=== PATIENT | male | born 1945 | race Caucasian/White ===

== ENCOUNTER 2021-07-16 07:29 | Outpatient (CLI) | payer MEDICAID ==
[2021-07-16 12:13] LABS: BASOPHILS % (AUTO) 0.5 %; EOSINOPHILS # (AUTO) 0.3 10^3/uL (0.0-0.7); EOSINOPHILS % (AUTO) 5.6 %; HCT - HEMATOCRIT 54.3 % (42.0-52.0); HGB - HEMOGLOBIN 17.2 g/dL (14.0-18.0); LYMPHOCYTES # (AUTO) 1.2 10^3/uL (1.5-3.5); LYMPHOCYTES % (AUTO) 20.1 %; MEAN CORPUSCULAR HEMOGLOBIN 29.7 pg (27.0-31.0); MEAN CORPUSCULAR HGB CONC 31.7 g/dL (32.0-36.0); MEAN CORPUSCULAR VOLUME 93.8 fL (80.0-94.0); MEAN PLATELET VOLUME 10.8 fL; MONOCYTES # (AUTO) 0.6 10^3/uL (0.0-1.0); MONOCYTES % (AUTO) 9.7 %; NEUTROPHILS # (AUTO) 3.9 10^3/uL (1.5-6.6); NEUTROPHILS % (AUTO) 63.9 %; PLT - PLATELET COUNT 166 10^3/uL (130-450); RED BLOOD COUNT 5.79 10^6/uL (4.70-6.10); RED CELL DISTRIBUTION WIDTH 12.4 % (12.0-15.0); WHITE BLOOD COUNT 6.1 x10^3/uL (4.8-10.8)
[2021-07-16 12:52] LABS: ALBUMIN 4.6 g/dL (3.2-5.5); ALBUMIN/GLOBULIN RATIO 1.3 (1.0-2.2); ALKALINE PHOSPHATASE 75 IU/L (42-121); ALT ALANINE AMINOTRANSFERASE 24 IU/L (10-60); AST ASPARTATE AMINOTRANSFERASE 19 IU/L (10-42); BILIRUBIN,TOTAL 0.8 mg/dL (0.2-1.0); BUN - BLOOD UREA NITROGEN 20 mg/dL (6-20); CALCIUM 9.8 mg/dL (8.5-10.3); CARBON DIOXIDE - CO2 35 mmol/L (21-32); CHLORIDE 96 mmol/L (101-111); CHOL/HDL RATIO 4.2; CHOLESTEROL 195 mg/dL; CREATININE 0.7 mg/dL (0.6-1.2); GFR - MDRD 110 (>89); GLUCOSE 106 mg/dL (70-100); HDL CHOLESTEROL 46 mg/dL; LDL CHOLESTEROL,CALCULATED 114 mg/dL; LDL/HDL RATIO 2.5 (<3.6); POTASSIUM 4.6 mmol/L (3.5-5.0); SODIUM 139 mmol/L (135-145); TOTAL PROTEIN 8.2 g/dL (6.7-8.2); TRIGLYCERIDES 173 mg/dL; VLDL CHOLESTEROL 35 mg/dL
== END 2021-07-16 07:30 | disposition home or self-care (01) ==
LOC: EDSEX → LAB.N 07:29
PROVIDERS: ATTEND Internal Medicine
DX: I10 Essential (primary) hypertension (principal); Z13.6 Encounter for screening for cardiovascular disorders; Z79.899 Other long term (current) drug therapy; J44.9 Chronic obstructive pulmonary disease, unspecified; M19.90 Unspecified osteoarthritis, unspecified site; F31.9 Bipolar disorder, unspecified; F41.9 Anxiety disorder, unspecified; N40.0 Benign prostatic hyperplasia without lower urinary tract symptoms
CPT/HCPCS: 36415; 80053; 80061; 83721; 84153; 84443; 85025

== ENCOUNTER 2021-07-17 09:00 | Outpatient (CLI) | payer MEDICAID ==
[2021-07-17 14:03] LABS: FECAL OCCULT BLOOD (FIT) NEGATIVE (NEGATIVE)
== END 2021-07-17 23:59 | disposition home or self-care (01) ==
LOC: EDSEX → LAB 09:00
PROVIDERS: ATTEND Internal Medicine
DX: Z12.11 Encounter for screening for malignant neoplasm of colon (principal); Z12.12 Encounter for screening for malignant neoplasm of rectum
CPT/HCPCS: 82274

== ENCOUNTER 2021-08-30 15:51 | Outpatient (CLI) | payer MEDICARE, MEDICAID | END 2021-08-30 15:52 | disposition critical access hospital (66) | LOC: EMS 15:51 | DX: R06.00 Dyspnea, unspecified (principal) | CPT/HCPCS: A0425; A0427 ==

== ENCOUNTER 2021-08-30 16:07 | Inpatient (IN) | payer MEDICARE, MEDICAID ==
[2021-08-30] MEDS ORDERED: ALBUTEROL NEB 2.5 MG/3 ML INH STA (16:13)
[2021-08-30] MEDS ORDERED: methylPREDNISolone SUCCINATE 125 MG/2 ML VIAL IVP STA (16:14)
--- NOTE | 2021-08-30 16:17 | ED Physician Documentation ---
PD HPI DYSPNEA - Stated complaint Stated Complaint: SOA - History obtained from History obtained from: Patient, EMS - Additional information Additional information: 76-year-old gentleman presents from [facility] assisted living. He has a history of COPD for which he wears oxygen, schizophrenia and TBI. He does not know how much oxygen he usually wears at home but he says he does wear it all the time. He has been more short of breath over the last couple of days with increased wheezing but only a mild cough. He denies chest pain or pedal edema. EMS was summoned and they found him at the nursing station not wearing oxygen, on room air his sat was in the 70s. On the way here he got a DuoNeb and is feeling much better. Review of Systems Ten Systems: 10 systems reviewed and negative Constitutional: reports: Reviewed and negative Ears: reports: Reviewed and negative Nose: reports: Reviewed and negative PD PAST MEDICAL HISTORY - Allergies Allergies/Adverse Reactions: Allergies Allergy/AdvReac Type Severity Reaction Status Date / Time No Known Drug Allergies Allergy Verified 08/30/21 16:30 PD ED PE NORMAL - Vitals Vital signs reviewed: Yes - General General: Other (Knows it is Mindy but not which year.) - HEENT HEENT: PERRL, EOMI, Pharynx benign - Neck Neck: Supple, no meningeal sign, No bony TTP - Cardiac Cardiac: RRR, No murmur - Respiratory Respiratory: No respiratory distress, Other (Diminished throughout with mild expiratory wheezes, nonlabored) - Abdomen Abdomen: Soft, Non tender - Back Back: No CVA TTP, No spinal TTP - Derm Derm: Normal color, Warm and dry - Extremities Extremities: No edema, No calf tenderness / cord - Psych Psych: Normal mood, Normal affect Results - Vitals Vitals: Vital Signs - 24 hr 08/30/21 08/30/21 08/30/21 16:17 16:30 17:00 Temperature 36.8 C 36.8 C Heart Rate 105 H 105 H 98 Respiratory 20 20 28 H Rate Blood Pressure 123/72 123/72 122/69 O2 Saturation 87 L 93 Oxygen O2 Source Nasal cannula Oxygen Flow Rate 4 - Labs Labs: Laboratory Tests 08/30/21 08/30/21 08/30/21 16:15 16:30 16:30 WBC 8.4 RBC 5.12 Hgb 15.1 Hct 46.5 MCV 90.8 MCH 29.5 MCHC 32.5 RDW 13.1 Plt Count 134 MPV 10.4 Neut # (Auto) Not Reportable Lymph # (Auto) Not Reportable [place] # (Auto) Not Reportable Eos # (Auto) Not Reportable Baso # (Auto) Not Reportable Absolute Nucleated RBC Not Reportable Total Counted 100 Band Neuts % (Manual) 5 Abnorm Lymph % (Manual) 0 Nucleated RBC % Not Reportable Neutrophils # (Manual) 6.7 H Lymphocytes # (Manual) 0.6 L Monocytes # (Manual) 1.1 H Eosinophils # (Manual) 0.0 Basophils # (Manual) 0.0 Nucleated RBCs 1 Differential Comment MANUAL DIFFERENTIAL WBC Morphology NORMAL APPEARANCE Platelet Estimate NORMAL (130-450,000) Platelet Morphology NORMAL APPEARANCE RBC Morph Micro Appear 1+ POLYCHROMASIA VBG pH VBG pCO2 VBG pO2 VBG HCO3 VBG Total CO2 VBG O2 Saturation VBG Base Excess Sodium 132 L Potassium 4.3 Chloride 90 L Carbon Dioxide 32 Anion Gap 10.0 BUN 43 H Creatinine 1.0 Estimated GFR (MDRD) 73 L Glucose 220 H Calcium 8.1 L Phosphorus 3.3 Nasal Adenovirus (PCR) NOT DETECTED Nasal B. parapertussis DNA (PCR) NOT DETECTED Nasal Coronavir 229E PCR NOT DETECTED Nasal Coronavir HKU1 PCR NOT DETECTED Nasal Coronavir NL63 PCR NOT DETECTED Nasal Coronavir OC43 PCR NOT DETECTED Nasal Enterovir/Rhinovir PCR NOT DETECTED Nasal Influenza B PCR NOT DETECTED Nasal Influenza A PCR NOT DETECTED Nasal Parainfluen 1 PCR NOT DETECTED Nasal Parainfluen 2 PCR DETECTED A Nasal Parainfluen 3 PCR NOT DETECTED Nasal Parainfluen 4 PCR NOT DETECTED Nasal RSV (PCR) NOT DETECTED Nasal B.pertussis DNA PCR NOT DETECTED Nasal C.pneumoniae (PCR) NOT DETECTED [place] Human Metapneumo PCR NOT DETECTED Nasal M.pneumoniae (PCR) NOT DETECTED Nasal SARS-CoV-2 (PCR) NOT DETECTED 08/30/21 16:30 WBC RBC Hgb Hct MCV MCH MCHC RDW Plt Count MPV Neut # (Auto) Lymph # (Auto) [place] # (Auto) Eos # (Auto) Baso # (Auto) Absolute Nucleated RBC Total Counted Band Neuts % (Manual) Abnorm Lymph % (Manual) Nucleated RBC % Neutrophils # (Manual) Lymphocytes # (Manual) Monocytes # (Manual) Eosinophils # (Manual) Basophils # (Manual) Nucleated RBCs Differential Comment WBC Morphology Platelet Estimate Platelet Morphology RBC Morph Micro Appear VBG pH 7.256 L VBG pCO2 75.1 H VBG pO2 31.7 VBG HCO3 32.6 H VBG Total CO2 34.9 H VBG O2 Saturation 58.2 L VBG Base Excess 2.6 H Sodium Potassium Chloride Carbon Dioxide Anion Gap BUN Creatinine Estimated GFR (MDRD) Glucose Calcium Phosphorus Nasal Adenovirus (PCR) Nasal B. parapertussis DNA (PCR) Nasal Coronavir 229E PCR Nasal Coronavir HKU1 PCR Nasal Coronavir NL63 PCR Nasal Coronavir OC43 PCR Nasal Enterovir/Rhinovir PCR Nasal Influenza B PCR Nasal Influenza A PCR Nasal Parainfluen 1 PCR Nasal Parainfluen 2 PCR Nasal Parainfluen 3 PCR Nasal Parainfluen 4 PCR Nasal RSV (PCR) Nasal B.pertussis DNA PCR Nasal C.pneumoniae (PCR) Osbaldo Human Metapneumo PCR Nasal M.pneumoniae (PCR) Nasal SARS-CoV-2 (PCR) - Rads (name of study) 1v cxr Radiology: EMP read contemporaneously (bibasilar atalectasis) PD MEDICAL DECISION MAKING - ED course ED course: 76-year-old gentleman presents by ambulance for apparent COPD exacerbation with wheezing and hypoxemia. He states that he wears oxygen at home, but he does seem confused and this is not on the paperwork that accompanies him. I called and spoke with the nurse at [facility]. She notes that he is more confused than normal and despite his history above, he does not wear oxygen at Baseline. He received a DuoNeb prior to arrival and received a couple more nebs here. Still has significant oxygen requirement although did not appear to labored. Blood gas shows acidosis and CO2 retention. Spoke with Dr. Bonner for admission at 5:20 PM. Did receive IV steroids and Dr. Bonner recommended we add antibiotics. - Critical Care Time(min): 35 Time Includes: Direct patient care, Review records, Reassess patient, Document care, Coordinate care, Medical consult Data interpretation: Labs, Pulse ox Departure - Departure Disposition: 66 [facility] DC/Xfer Clinical Impression: Severe chronic obstructive pulmonary disease Respiratory failure Qualifiers: Chronicity: acute Respiratory failure complication: hypoxia and hypercapnia Qualified Code(s): J96.01 - Acute respiratory failure with hypoxia Condition: Serious
--- NOTE | 2021-08-30 16:39 | XRAY Report ---
PROCEDURE: Chest 1 View X-Ray INDICATIONS: dyspnea TECHNIQUE: One view of the chest was acquired. COMPARISON: None FINDINGS: Surgical changes and devices: None. Lungs and pleura: Bibasilar atelectasis. No pleural effusions or pneumothorax. Lungs are clear. Mediastinum: Mediastinal contours appear normal. Heart size is normal. Bones and chest wall: No suspicious bony lesions. Overlying soft tissues appear unremarkable. IMPRESSION: Bibasilar atelectasis. No acute cardiopulmonary abnormality. Reviewed by: Candido Nance on 08/30/2021 3:38 PM [facility] Approved by: Candido Nance on 08/30/2021 3:38 PM [facility] Station ID: [id number]
[2021-08-30 16:41] LABS: BASOPHILS % (AUTO) 0.2 %; HCT - HEMATOCRIT 46.5 % (42.0-52.0); HGB - HEMOGLOBIN 15.1 g/dL (14.0-18.0); LYMPHOCYTES % (AUTO) 8.7 %; MEAN CORPUSCULAR HEMOGLOBIN 29.5 pg (27.0-31.0); MEAN CORPUSCULAR HGB CONC 32.5 g/dL (32.0-36.0); MEAN CORPUSCULAR VOLUME 90.8 fL (80.0-94.0); MEAN PLATELET VOLUME 10.4 fL (7.4-11.4); MONOCYTES % (AUTO) 7.5 %; NEUTROPHILS % (AUTO) 83.1 %; PLT - PLATELET COUNT 134 10^3/uL (130-450); RED BLOOD COUNT 5.12 10^6/uL (4.70-6.10); RED CELL DISTRIBUTION WIDTH 13.1 % (12.0-15.0); WHITE BLOOD COUNT 8.4 x10^3/uL (4.8-10.8)
[2021-08-30 16:43] LABS: ABNORMAL LYMPHS % (MANUAL) 0 %; VBG BASE EXCESS 2.6 mmol/L (-2 - +2); VBG HCO3 32.6 mmol/L (23-28); VBG OXYGEN SATURATION 58.2 % (60-80); VBG PCO2 75.1 mmHg (41-51); VBG PH 7.256 (7.31-7.41); VBG PO2 31.7 mmHg (25-47); VBG TOTAL CO2 34.9 mmol/L (24-29)
[2021-08-30] MEDS ORDERED: cefTRIAXone 1 GM in SODIUM CHLORIDE 0.9% MINIBAG 100 ML IV STA (16:51)
[2021-08-30 16:55] LABS: CALCIUM 8.1 mg/dL (8.5-10.3); PHOSPHORUS 3.3 mg/dL (2.5-4.6); POTASSIUM 4.3 mmol/L (3.5-5.0)
[2021-08-30 17:12] LABS: BAND NEUTROPHILS % (MANUAL) 5 %; LYMPHOCYTES # (MANUAL) 0.6 10^3/uL (1.5-3.5); LYMPHOCYTES % (MANUAL) 7 %; MONOCYTES # (MANUAL) 1.1 10^3/uL (0.0-1.0); NEUTROPHILS # (MANUAL) 6.7 10^3/uL (1.5-6.6); NUCLEATED RBC (MANUAL) 1 %
[2021-08-30 17:13] LABS: DIFFERENTIAL COMMENT MANUAL DIFFERENTIAL; PLATELET ESTIMATE, MANUAL NORMAL (130-450,000) (NORMAL); PLATELET MORPHOLOGY NORMAL APPEARANCE (NORMAL); RBC MORPHOLOGY (MULTIPLE) 1+ POLYCHROMASIA (NORMAL); WBC MORPHOLOGY (MULTIPLE) NORMAL APPEARANCE (NORMAL)
[2021-08-30] MEDS ORDERED: ACETAMINOPHEN 325 MG TABLET PO PRN (17:27)
[2021-08-30] MEDS ORDERED: SODIUM CHLORIDE FLUSH 0.9% 10 ML SYRINGE IVP PRN (17:27)
[2021-08-30] MEDS ORDERED: ONDANSETRON ODT 4 MG TABLET TL PRN (17:27)
[2021-08-30] MEDS ORDERED: ONDANSETRON 4 MG/2 ML VIAL IVP PRN (17:27)
[2021-08-30 18:00] LABS: CORONAVIRUS 229E-RESP PCR NOT DETECTED; CORONAVIRUS HKU1-RESP PCR NOT DETECTED; CORONAVIRUS NL63-RESP PCR NOT DETECTED; CORONAVIRUS OC43-RESP PCR NOT DETECTED; HUMAN METAPNEUMOVIRUS NOT DETECTED; INFLUENZA A- RESP PCR PANEL NOT DETECTED; RHINOVIRUS/ENTEROVIRUS NOT DETECTED; SARS-CoV-2 -RESP PCR PANEL NOT DETECTED
[2021-08-30 18:01] LABS: B. PARAPERTUSSIS- RESP PCR PAN NOT DETECTED; B. PERTUSSIS- RESP PCR PANEL NOT DETECTED; C. PNEUMONIAE- RESP PCR PANEL NOT DETECTED; INFLUENZA B - RESP PCR PANEL NOT DETECTED; M. PNEUMONIAE- RESP PCR PANEL NOT DETECTED; PARAINFLUENZA VIRUS 1 NOT DETECTED; PARAINFLUENZA VIRUS 2 DETECTED; PARAINFLUENZA VIRUS 3 NOT DETECTED; PARAINFLUENZA VIRUS 4 NOT DETECTED; RSV- RESP PCR PANEL NOT DETECTED
[2021-08-30] MEDS ORDERED: ALBUTEROL NEB 2.5 MG/3 ML INH PRN (18:39)
--- NOTE | 2021-08-30 19:33 | HISTORY & PHYSICAL EXAMINATION ---
Chief Complaint - Chief Complaint Chief Complaint: dyspnea History of Present Illness - Admitted From Admitted From:: [facility] ED - History Obtained From Records Reviewed: yes History obtained from: ED physician and records Exam Limitations: medical condition - History of Present Illness HPI Comment/Other: "76-year-old gentleman presents from [facility] assisted living. He has a history of COPD for which he wears oxygen, schizophrenia and TBI. He does not know how much oxygen he usually wears at home but he says he does wear it all the time. He has been more short of breath over the last couple of days with increased wheezing but only a mild cough. He denies chest pain or pedal edema. EMS was summoned and they found him at the nursing station not wearing oxygen, on room air his sat was in the 70s. On the way here he got a DuoNeb and is feeling much better." The above account was obtained from the ED physician Dr. Mccabe's H&P because the patient is unable to provide a reliable history. This is likely owing to history of traumatic brain injury and schizophrenia. He believes his is still at [facility]. At bedside he is resting comfortably and does not appear to be in any distress. He denies shortness of breath, chest pain, abdominal pain, nausea, vomiting, fever or chills. History - Past Medical History Cardiovascular: reports: Hypertension Respiratory: reports: COPD Neuro: reports: Other (TBI) Endocrine/Autoimmune: reports: None GI: reports: None : reports: Benign prostate hypertrophy HEENT: reports: None Psych: reports: Schizophrenia Musculoskeletal: reports: None Derm: reports: None MRSA Hx?: No Other Past Medical History: TBI - Family & Social History Family History Comment/Other: Family and social history is limited because the patient is unable to provide. This is likely due to schizophrenia and traumatic brain injury. - POLST Patient has POLST: No POLST Status: Full Code Meds/Allgy - Allergies Allergies/Adverse Reactions: Allergies Allergy/AdvReac Type Severity Reaction Status Date / Time No Known Drug Allergies Allergy Verified 08/30/21 16:30 Review of Systems - Constitutional Constitutional: denies: Fatigue, Fever, Chills - Eyes Eyes: denies: Pain - Ears, Nose & Throat Ears, Nose & Throat: denies: Ear pain - Cardiovascular Cariovascular: denies: Irregular heart rate, Chest pain, Edema, Lightheadedness, Syncope - Respiratory Respiratory: reports: Wheezing, SOB at rest, SOB with exertion. denies: Cough, Sputum production - Gastrointestinal Gastrointestinal: denies: Abdominal pain, Abdominal distention, Nausea, Vomiting, Reflux/heartburn - Genitourinary Genitourinary: denies: Dysuria, Frequency, Urgency, Hematuria - Musculoskeletal Musculoskeletal: denies: Muscle pain, Back pain, Muscle aches, Stiffness - Integumentary Integumentary: denies: Rash, Pruritis - Neurological Neurological: denies: General weakness, Focal weakness, Headache, Dizziness - Psychiatric Psychiatric: denies: Depression, Anxiety - Endocrine Endocrine: denies: Polyuria, Polydypsia - Hematologic/Lymphatic Hematologic/Lymphatic: denies: Anemia, Bruising, Petechiae Prior Level of Functionality: Patient resides at [facility]. He is abilities on level of independence is unknown Exam - Vital Signs Vital Signs: Vital Signs x48h Temp Pulse Pulse Resp BP BP Pulse Ox 08/30/21 18:05 37.2 C 90 20 127/63 97 08/30/21 17:35 90 144/78 H 08/30/21 17:00 98 28 H 122/69 93 08/30/21 16:30 36.8 C 105 H 20 123/72 87 L 08/30/21 16:17 36.8 C 105 H 20 123/72 - Physical Exam General Appearance: positive: No acute distress, Alert, Other (Not oriented place time or reason) Eyes Bilateral: positive: PERRL, EOMI ENT: positive: No signs of dehydration Neck: positive: No JVD, Trachea midline Respiratory: positive: Chest non-tender, Wheezes (mild), Other (Decreased air movement on auscultation of lungs) Cardiovascular: positive: Regular rate & rhythm, No murmur Abdomen: positive: Non-tender, No organomegaly, Nml bowel sounds, No distention. negative: Guarding, Rebound Back: positive: Nml inspection Skin: positive: Color nml, No rash, Warm, Dry Extremities: positive: Non-tender, Full ROM, No pedal edema Neurologic/Psychiatric: positive: Mood/affect nml, Disoriented to place, Disoriented to time Conclusion/Plan - Problem List (1) Acute and chronic respiratory failure with hypoxia Conclusion/Plan: Secondary to COPD exacerbation. Patient is currently on 3 L of oxygen via nasal cannula with oxygen saturation at 93% Solu-Medrol 40 mg IV twice daily. DuoNeb 4 times daily. Albuterol every 4 hours as needed. Budesonide and Perforomist twice daily ordered. (2) COPD exacerbation Conclusion/Plan: Patient is currently on 3 L of oxygen via nasal cannula with oxygen saturation at 93% Solu-Medrol 40 mg IV twice daily. DuoNeb 4 times daily. Albuterol every 4 hours as needed. Budesonide and Perforomist twice daily ordered. (3) Hyperglycemia Conclusion/Plan: Likely secondary to Solu-Medrol administration. Sliding scale insulin. Accu-Cheks before every meal and at bedtime. - Lab Results Fish Bones: 08/31/21 05:15 08/31/21 05:15 Core Measures - Anticipated LOS I expect patient to be DC'd or transferred within 96 hours.: Yes - DVT/VTE - Prophylaxis VTE/DVT Device ordered at admit?: Yes
[2021-08-30] MEDS: NICOTINE 21 MG PATCH TOP SCH (21:04)
[2021-08-30] MEDS: INSULIN ASPART 300 UNIT/3 ML PEN SUBQ SCH (21:05)
[2021-08-30] MEDS: methylPREDNISolone SUCCINATE 40 MG/ML VIAL IVP SCH (21:05)
[2021-08-31] MEDS: SODIUM CHLORIDE FLUSH 0.9% 10 ML SYRINGE IVP SCH ×3 (02:11→16:58)
[2021-08-31] MEDS: IPRATROPIUM/ALBUTEROL 3 ML NEB INH SCH ×5 (03:52→19:58)
[2021-08-31 06:05] LABS: BASOPHILS % (AUTO) 0.2 %; EOSINOPHILS % (AUTO) 2.8 %; HCT - HEMATOCRIT 45.5 % (42.0-52.0); HGB - HEMOGLOBIN 14.7 g/dL (14.0-18.0); LYMPHOCYTES % (AUTO) 10.5 %; MEAN CORPUSCULAR HEMOGLOBIN 29.4 pg (27.0-31.0); MEAN CORPUSCULAR HGB CONC 32.3 g/dL (32.0-36.0); MEAN PLATELET VOLUME 10.7 fL (7.4-11.4); NEUTROPHILS % (AUTO) 82.9 %; PLT - PLATELET COUNT 136 10^3/uL (130-450); RED CELL DISTRIBUTION WIDTH 13.1 % (12.0-15.0); WHITE BLOOD COUNT 8.2 x10^3/uL (4.8-10.8)
[2021-08-31 06:07] LABS: ABNORMAL LYMPHS % (MANUAL) 0 %
[2021-08-31 06:08] LABS: CALCIUM 8.1 mg/dL (8.5-10.3); CREATININE 0.6 mg/dL (0.6-1.2); POTASSIUM 4.7 mmol/L (3.5-5.0)
[2021-08-31 06:33] LABS: BAND NEUTROPHILS % (MANUAL) 7 %; EOSINOPHILS # (MANUAL) 0.2 10^3/uL (0-0.7); LYMPHOCYTES # (MANUAL) 0.8 10^3/uL (1.5-3.5); LYMPHOCYTES % (MANUAL) 10 %; MONOCYTES # (MANUAL) 0.2 10^3/uL (0.0-1.0); PLATELET MORPHOLOGY NORMAL APPEARANCE (NORMAL); RBC MORPHOLOGY (MULTIPLE) 1+ POLYCHROMASIA (NORMAL)
[2021-08-31 06:34] LABS: DIFFERENTIAL COMMENT MANUAL DIFFERENTIAL; PLATELET ESTIMATE, MANUAL NORMAL (130-450,000) (NORMAL); WBC MORPHOLOGY (MULTIPLE) NORMAL APPEARANCE (NORMAL)
[2021-08-31] MEDS: BUDESONIDE 0.5 MG/2 ML NEB INH SCH ×2 (08:00→19:59)
[2021-08-31] MEDS: FORMOTEROL FUMARATE NEB 20 MCG/2 ML INH SCH ×2 (08:00→19:58)
[2021-08-31] MEDS: INSULIN ASPART 300 UNIT/3 ML PEN SUBQ SCH ×4 (09:12→21:06)
[2021-08-31] MEDS: methylPREDNISolone SUCCINATE 40 MG/ML VIAL IVP SCH ×2 (09:18→21:07)
[2021-08-31] MEDS: cefTRIAXone 1 GM in SODIUM CHLORIDE 0.9% MINIBAG 100 ML IV SCH (09:36)
[2021-08-31] MEDS: ENOXAPARIN 40 MG/0.4 ML SYRINGE SUBQ SCH (09:39)
[2021-08-31] MEDS: NICOTINE 21 MG PATCH TOP SCH (09:40)
[2021-08-31 11:40] LABS: ESTIMATED AVERAGE GLUCOSE 134 mg/dL (70-100); HEMOGLOBIN A1c% 6.3 % (4.27-6.07)
--- NOTE | 2021-08-31 19:43 | PROVIDER PROGRESS NOTE ---
Assessment/Plan - Problem List (1) Acute and chronic respiratory failure with hypoxia Assessment/Plan: Secondary to COPD exacerbation. Continue supplemental oxygen. Solu-Medrol 40 mg IV 3 times daily. DuoNeb 4 times daily. Albuterol every 4 hours as needed. Budesonide and Perforomist twice daily. (2) COPD exacerbation Assessment/Plan: Improving Continue supplemental oxygen. Solu-Medrol 40 mg IV 3 times daily. DuoNeb 4 times daily. Albuterol every 4 hours as needed. Budesonide and Perforomist twice daily. (3) Hyperglycemia Assessment/Plan: Likely secondary to Solu-Medrol administration. Sliding scale insulin. Accu-Cheks before every meal and at bedtime. HgA1C 6.3 - Current Meds Current Meds: Current Medications Generic Name Dose Route Start Last Admin Trade Name Freq PRN Reason Stop Dose Admin Albuterol/Ipratropium 3 ml 08/30/21 19:00 08/31/21 14:50 Ipratropium/Albuterol 3 Ml Neb INH 3 ml RTQID RAHUL Administration Budesonide 0.5 mg 08/31/21 07:00 08/31/21 08:00 Budesonide 0.5 Mg/2 Ml Neb INH 0.5 mg RTBID RAHUL Administration Enoxaparin Sodium 40 mg 08/31/21 09:00 08/31/21 09:39 Enoxaparin 40 Mg/0.4 Ml Syringe SUBQ 40 mg DAILY RAHUL Administration Formoterol Fumarate 20 mcg 08/31/21 07:00 08/31/21 08:00 Formoterol Fumarate Neb 20 Mcg/2 Ml INH 20 mcg RTBID RAHUL Administration Ceftriaxone Sodium 1 gm/ 100 mls @ 200 mls/hr 08/31/21 09:00 08/31/21 14:02 Sodium Chloride IV Infused DAILY RAHUL Infusion Insulin Aspart 1 - 9 unit 08/30/21 21:00 08/31/21 16:57 Insulin Aspart 300 Unit/3 Ml Pen SUBQ 3 unit 0800,1200,1700,2100 RAHUL Administration Protocol Methylprednisolone 40 mg 08/30/21 21:00 08/31/21 09:18 Methylprednisolone Succinate 40 Mg/Ml Vial IVP 40 mg BID RAHUL Administration Nicotine 1 patch 08/30/21 18:39 08/31/21 09:40 Nicotine 21 Mg Patch TOP 1 patch DAILY RAHUL Administration Sodium Chloride 10 ml 08/31/21 01:00 08/31/21 16:58 Sodium Chloride Flush 0.9% 10 Ml Syringe IVP 10 ml 0100,0900,1700 RAHUL Administration - Lab Result Fish Bone Diagrams: 08/31/21 05:15 08/31/21 05:15 - Additional Planning My Orders: My Active Orders 08/30/21 21:29 Nebulizer/MDI Tx. [RC] .qid Resp Teach Nebulizer/MDI [RC] .ONCE 08/31/21 07:00 Budesonide [Pulmicort] 0.5 mg INH RTBID Formoterol Fumarate [Perforomist] 20 mcg INH RTBID Subjective - Subjective Patient Reports: Other (Patient was resting comfortably in bed at time of exam. He denied any complaints. On auscultation there is diminished/decreased movement.) Objective Vital Signs: Vital Signs - 24 hr 08/30/21 08/31/21 08/31/21 20:43 01:00 04:59 Temperature 37.0 C 36.9 C 37.0 C Heart Rate Heart Rate [ 87 78 78 Brachial] Respiratory 20 18 18 Rate Blood Pressure 126/68 [Left Brachial artery] Blood Pressure 139/75 H 118/77 [Right Brachial artery] O2 Saturation 92 90 L 91 L 08/31/21 08/31/21 08/31/21 08:01 08:55 11:38 Temperature 36.9 C Heart Rate 76 75 Heart Rate [ 73 Brachial] Respiratory 14 18 18 Rate Blood Pressure 134/85 H [Left Brachial artery] Blood Pressure 134/85 H [Right Brachial artery] O2 Saturation 92 08/31/21 08/31/21 14:50 15:42 Temperature 36.7 C Heart Rate 70 Heart Rate [ 74 Brachial] Respiratory 14 24 Rate Blood Pressure [Left Brachial artery] Blood Pressure 108/58 L [Right Brachial artery] O2 Saturation 94 Oxygen O2 Source Nasal cannula Oxygen Flow Rate 4 I&O (Last 24 Hrs): Intake and Output Totals x24h 08/29/21 08/30/21 08/31/21 23:59 23:59 23:59 Intake Total 250 780 Balance 250 780 General: Alert, No acute distress, Other (awake but mainly orineted to self) HEENT: PERRLA, EOMI Neck: Supple, No JVD Neuro: Alert, Non Focal, Oriented Times 3 Cardiovascular: Regular rate, No murmurs Respiratory: Chest non-tender, No respiratory distress, Wheezes (mild wheeze) Abdomen: Normal bowel sounds, Soft, No tenderness, No masses Extremities: No clubbing, No edema, No tenderness/swelling - Results Results: Laboratory Results WBC 8.2 x10^3/uL (4.8-10.8) 08/31/21 05:15 RBC 5.00 10^6/uL (4.70-6.10) 08/31/21 05:15 Hgb 14.7 g/dL (14.0-18.0) 08/31/21 05:15 Hct 45.5 % (42.0-52.0) 08/31/21 05:15 MCV 91.0 fL (80.0-94.0) 08/31/21 05:15 MCH 29.4 pg (27.0-31.0) 08/31/21 05:15 MCHC 32.3 g/dL (32.0-36.0) 08/31/21 05:15 RDW 13.1 % (12.0-15.0) 08/31/21 05:15 Plt Count 136 10^3/uL (130-450) 08/31/21 05:15 MPV 10.7 fL (7.4-11.4) 08/31/21 05:15 Neut # (Auto) Not Reportable 08/31/21 05:15 Lymph # (Auto) Not Reportable 08/31/21 05:15 [place] # (Auto) Not Reportable 08/31/21 05:15 Eos # (Auto) Not Reportable 08/31/21 05:15 Baso # (Auto) Not Reportable 08/31/21 05:15 Absolute Nucleated RBC Not Reportable 08/31/21 05:15 Total Counted 100 08/31/21 05:15 Band Neuts % (Manual) 7 % (0-10) 08/31/21 05:15 Abnorm Lymph % (Manual) 0 % 08/31/21 05:15 Nucleated RBC % Not Reportable 08/31/21 05:15 Neutrophils # (Manual) 7.0 10^3/uL (1.5-6.6) H 08/31/21 05:15 Lymphocytes # (Manual) 0.8 10^3/uL (1.5-3.5) L 08/31/21 05:15 Monocytes # (Manual) 0.2 10^3/uL (0.0-1.0) 08/31/21 05:15 Eosinophils # (Manual) 0.2 10^3/uL (0-0.7) 08/31/21 05:15 Basophils # (Manual) 0.0 10^3/uL (0-0.1) 08/31/21 05:15 Nucleated RBCs 1 % 08/30/21 16:30 Differential Comment MANUAL DIFFERENTIAL 08/31/21 05:15 WBC Morphology NORMAL APPEARANCE (NORMAL) 08/31/21 05:15 Platelet Estimate NORMAL (130-450,000) (NORMAL) 08/31/21 05:15 Platelet Morphology NORMAL APPEARANCE (NORMAL) 08/31/21 05:15 RBC Morph Micro Appear 1+ POLYCHROMASIA (NORMAL) 08/31/21 05:15 VBG pH 7.256 (7.31-7.41) L 08/30/21 16:30 VBG pCO2 75.1 mmHg (41-51) H 08/30/21 16:30 VBG pO2 31.7 mmHg (25-47) 08/30/21 16:30 VBG HCO3 32.6 mmol/L (23-28) H 08/30/21 16:30 VBG Total CO2 34.9 mmol/L (24-29) H 08/30/21 16:30 VBG O2 Saturation 58.2 % (60-80) L 08/30/21 16:30 VBG Base Excess 2.6 mmol/L (-2 - +2) H 08/30/21 16:30 Sodium 132 mmol/L (135-145) L 08/31/21 05:15 Potassium 4.7 mmol/L (3.5-5.0) 08/31/21 05:15 Chloride 91 mmol/L (101-111) L 08/31/21 05:15 Carbon Dioxide 34 mmol/L (21-32) H 08/31/21 05:15 Anion Gap 7.0 (6-13) 08/31/21 05:15 BUN 41 mg/dL (6-20) H 08/31/21 05:15 Creatinine 0.6 mg/dL (0.6-1.2) 08/31/21 05:15 Estimated GFR (MDRD) 131 (>89) 08/31/21 05:15 Glucose 196 mg/dL (70-100) H 08/31/21 05:15 Estimat Average Glucose 134 mg/dL (70-100) H 08/31/21 05:15 Hemoglobin A1c % 6.3 % (4.27-6.07) H 08/31/21 05:15 Calcium 8.1 mg/dL (8.5-10.3) L 08/31/21 05:15 Phosphorus 3.3 mg/dL (2.5-4.6) 08/30/21 16:30 Nasal Adenovirus (PCR) NOT DETECTED 08/30/21 16:15 Nasal B. parapertussis DNA (PCR) NOT DETECTED 08/30/21 16:15 Nasal Coronavir 229E PCR NOT DETECTED 08/30/21 16:15 Nasal Coronavir HKU1 PCR NOT DETECTED 08/30/21 16:15 Nasal Coronavir NL63 PCR NOT DETECTED 08/30/21 16:15 Nasal Coronavir OC43 PCR NOT DETECTED 08/30/21 16:15 Nasal Enterovir/Rhinovir PCR NOT DETECTED 08/30/21 16:15 Nasal Influenza B PCR NOT DETECTED 08/30/21 16:15 Nasal Influenza A PCR NOT DETECTED 08/30/21 16:15 Nasal Parainfluen 1 PCR NOT DETECTED 08/30/21 16:15 Nasal Parainfluen 2 PCR DETECTED A 08/30/21 16:15 Nasal Parainfluen 3 PCR NOT DETECTED 08/30/21 16:15 Nasal Parainfluen 4 PCR NOT DETECTED 08/30/21 16:15 Nasal RSV (PCR) NOT DETECTED 08/30/21 16:15 Nasal B.pertussis DNA PCR NOT DETECTED 08/30/21 16:15 Nasal C.pneumoniae (PCR) NOT DETECTED 08/30/21 16:15 [place]bal[place] Human Metapneumo PCR NOT DETECTED 08/30/21 16:15 Nasal M.pneumoniae (PCR) NOT DETECTED 08/30/21 16:15 Nasal SARS-CoV-2 (PCR) NOT DETECTED 08/30/21 16:15 ABX Reporting Has patient been on IV antibiotics over the past 48 hours?: No
[2021-09-01 05:52] LABS: BASOPHILS % (AUTO) 0.2 %; HCT - HEMATOCRIT 41.8 % (42.0-52.0); HGB - HEMOGLOBIN 13.5 g/dL (14.0-18.0); LYMPHOCYTES # (AUTO) 1.1 10^3/uL (1.5-3.5); LYMPHOCYTES % (AUTO) 12.8 %; MEAN CORPUSCULAR HEMOGLOBIN 28.9 pg (27.0-31.0); MEAN CORPUSCULAR HGB CONC 32.3 g/dL (32.0-36.0); MEAN CORPUSCULAR VOLUME 89.5 fL (80.0-94.0); MEAN PLATELET VOLUME 9.9 fL (7.4-11.4); MONOCYTES # (AUTO) 0.5 10^3/uL (0.0-1.0); MONOCYTES % (AUTO) 5.5 %; NEUTROPHILS # (AUTO) 7.1 10^3/uL (1.5-6.6); NEUTROPHILS % (AUTO) 80.6 %; NRBC ABSOLUTE COUNT (AUTO) 0.02 x10^3/uL; NUCLEATED RED BLOOD CELLS AUTO 0.2 /100WBC; PLT - PLATELET COUNT 163 10^3/uL (130-450); RED BLOOD COUNT 4.67 10^6/uL (4.70-6.10); RED CELL DISTRIBUTION WIDTH 12.8 % (12.0-15.0); WHITE BLOOD COUNT 8.9 x10^3/uL (4.8-10.8)
[2021-09-01] MEDS: SODIUM CHLORIDE FLUSH 0.9% 10 ML SYRINGE IVP SCH ×3 (05:55→17:00)
[2021-09-01 06:29] LABS: CALCIUM 8.3 mg/dL (8.5-10.3); CREATININE 0.5 mg/dL (0.6-1.2); POTASSIUM 5.2 mmol/L (3.5-5.0)
[2021-09-01] MEDS: FORMOTEROL FUMARATE NEB 20 MCG/2 ML INH SCH ×2 (07:17→18:50)
[2021-09-01] MEDS: BUDESONIDE 0.5 MG/2 ML NEB INH SCH ×2 (07:17→18:50)
[2021-09-01] MEDS: IPRATROPIUM/ALBUTEROL 3 ML NEB INH SCH ×4 (07:17→18:50)
--- NOTE | 2021-09-01 08:14 | PHARMACY PROGRESS NOTE ---
- Best Possible Medication History Admit Date and Time: 08/30/21 1727 Processed by: Pharmacy Medication History completed: Yes Patient Interview: Pt unable to participate Secondary Source(s): Pharmacy records, Insurance records As the person ultimately responsible for medication therapy, providers are able to order a medication from an existing home medication list in [facility] via the "Reconcile Routine" prior to Confirmation of that medication by customer support consultant. Such practice is discouraged except when the physician, in their clinical judgment, deems that a medical need exists for a medication without regard to previous use.
[2021-09-01] MEDS: INSULIN ASPART 300 UNIT/3 ML PEN SUBQ SCH ×4 (08:24→20:53)
[2021-09-01] MEDS: NICOTINE 21 MG PATCH TOP SCH (08:26)
[2021-09-01] MEDS: methylPREDNISolone SUCCINATE 40 MG/ML VIAL IVP SCH ×2 (08:27→20:54)
[2021-09-01] MEDS: ENOXAPARIN 40 MG/0.4 ML SYRINGE SUBQ SCH (08:27)
[2021-09-01] MEDS: cefTRIAXone 1 GM in SODIUM CHLORIDE 0.9% MINIBAG 100 ML IV SCH (08:38)
[2021-09-01] MEDS: INSULIN GLARGINE 300 UNIT/3 ML PEN SUBQ SCH (10:04)
[2021-09-01 12:29] LABS: CALCIUM 8.7 mg/dL (8.5-10.3); CREATININE 0.5 mg/dL (0.6-1.2); POTASSIUM 4.6 mmol/L (3.5-5.0)
--- NOTE | 2021-09-01 19:03 | PROVIDER PROGRESS NOTE ---
Assessment/Plan - Problem List (1) Acute and chronic respiratory failure with hypoxia Assessment/Plan: Secondary to COPD exacerbation. Continue supplemental oxygen. Solu-Medrol 40 mg IV 3 times daily. DuoNeb 4 times daily. Albuterol every 4 hours as needed. Budesonide and Perforomist twice daily. (2) COPD exacerbation Assessment/Plan: Improving Continue supplemental oxygen. Solu-Medrol 40 mg IV 3 times daily. DuoNeb 4 times daily. Albuterol every 4 hours as needed. Budesonide and Perforomist twice daily. (3) Hyperglycemia Assessment/Plan: Likely secondary to Solu-Medrol administration. Sliding scale insulin. Accu-Cheks before every meal and at bedtime. HgA1C 6.3 - Current Meds Current Meds: Current Medications Generic Name Dose Route Start Last Admin Trade Name Freq PRN Reason Stop Dose Admin Albuterol/Ipratropium 3 ml 09/01/21 15:00 09/01/21 16:11 Ipratropium/Albuterol 3 Ml Neb INH 3 ml RTQID RAHUL Administration Budesonide 0.5 mg 08/31/21 07:00 09/01/21 07:17 Budesonide 0.5 Mg/2 Ml Neb INH 0.5 mg RTBID RAHUL Administration Enoxaparin Sodium 40 mg 08/31/21 09:00 09/01/21 08:27 Enoxaparin 40 Mg/0.4 Ml Syringe SUBQ 40 mg DAILY RAHUL Administration Formoterol Fumarate 20 mcg 08/31/21 07:00 09/01/21 07:17 Formoterol Fumarate Neb 20 Mcg/2 Ml INH 20 mcg RTBID RAHUL Administration Ceftriaxone Sodium 1 gm/ 100 mls @ 200 mls/hr 08/31/21 09:00 09/01/21 09:15 Sodium Chloride IV Infused DAILY RAHUL Infusion Insulin Aspart 2 - 10 unit 09/01/21 12:00 09/01/21 17:00 Insulin Aspart 300 Unit/3 Ml Pen SUBQ 4 unit 0800,1200,1700,2100 RAHUL Administration Protocol Insulin Glargine 10 unit 09/01/21 09:00 09/01/21 10:04 Insulin Glargine 300 Unit/3 Ml Pen SUBQ 10 unit DAILY RAHUL Administration Methylprednisolone 40 mg 08/30/21 21:00 09/01/21 08:27 Methylprednisolone Succinate 40 Mg/Ml Vial IVP 40 mg BID RAHUL Administration Nicotine 1 patch 08/30/21 18:39 09/01/21 08:26 Nicotine 21 Mg Patch TOP 1 patch DAILY RAHUL Administration Sodium Chloride 10 ml 08/31/21 01:00 09/01/21 17:00 Sodium Chloride Flush 0.9% 10 Ml Syringe IVP 10 ml 0100,0900,1700 RAHUL Administration - Lab Result Fish Bone Diagrams: 09/01/21 05:30 09/01/21 12:10 - Additional Planning My Orders: My Active Orders 08/31/21 20:12 Miscellaenous Nursing Order [RC] QSHIFT Subjective - Subjective Patient Reports: Other (Patient was resting comfortably in bed at time of exam. He denied any complaints. On auscultation there is diminished/decreased movement.) Objective Vital Signs: Vital Signs - 24 hr 08/31/21 08/31/21 09/01/21 20:00 20:21 01:00 Temperature 36.6 C 37.0 C Heart Rate 78 Heart Rate [ 73 64 Brachial] Respiratory 16 24 24 Rate Blood Pressure 123/67 [Left Brachial artery] Blood Pressure 140/76 H [Right Brachial artery] O2 Saturation 91 L 91 L 09/01/21 09/01/21 09/01/21 05:41 07:17 07:36 Temperature 36.8 C 36.7 C Heart Rate 65 Heart Rate [ 57 L 71 Brachial] Respiratory 20 14 22 Rate Blood Pressure 121/65 128/58 L [Left Brachial artery] Blood Pressure [Right Brachial artery] O2 Saturation 92 94 09/01/21 09/01/21 09/01/21 08:25 08:26 08:35 Temperature Heart Rate Heart Rate [ Brachial] Respiratory Rate Blood Pressure [Left Brachial artery] Blood Pressure [Right Brachial artery] O2 Saturation 77 L 80 L 88 L 09/01/21 09/01/21 09/01/21 10:07 11:25 11:52 Temperature 36.2 C L Heart Rate 60 Heart Rate [ 70 Brachial] Respiratory 24 24 Rate Blood Pressure 132/75 H [Left Brachial artery] Blood Pressure [Right Brachial artery] O2 Saturation 90 L 87 L 09/01/21 09/01/21 09/01/21 16:11 16:46 18:50 Temperature 36.6 C Heart Rate 70 66 Heart Rate [ 62 Brachial] Respiratory 20 24 20 Rate Blood Pressure [Left Brachial artery] Blood Pressure 125/68 [Right Brachial artery] O2 Saturation 90 L Oxygen O2 Source Nasal cannula Oxygen Flow Rate 4 I&O (Last 24 Hrs): Intake and Output Totals x24h 08/30/21 08/31/21 09/01/21 23:59 23:59 23:59 Intake Total 517 866 4171 Output Total 350 Balance 597 044 6528 Comments/Notes: General: Alert, No acute distress, Other (awake but mainly oriented to self) HEENT: PERRLA, EOMI Neck: Supple, No JVD Neuro: Alert, Non Focal, Oriented Times 3 Cardiovascular: Regular rate, No murmurs Respiratory: Chest non-tender, No respiratory distress, Wheezes (mild wheeze) Abdomen: Normal bowel sounds, Soft, No tenderness, No masses Extremities: No clubbing, No edema, No tenderness/swelling - Results Results: Laboratory Results WBC 8.9 x10^3/uL (4.8-10.8) 09/01/21 05:30 RBC 4.67 10^6/uL (4.70-6.10) L 09/01/21 05:30 Hgb 13.5 g/dL (14.0-18.0) L 09/01/21 05:30 Hct 41.8 % (42.0-52.0) L 09/01/21 05:30 MCV 89.5 fL (80.0-94.0) 09/01/21 05:30 MCH 28.9 pg (27.0-31.0) 09/01/21 05:30 MCHC 32.3 g/dL (32.0-36.0) 09/01/21 05:30 RDW 12.8 % (12.0-15.0) 09/01/21 05:30 Plt Count 163 10^3/uL (130-450) 09/01/21 05:30 MPV 9.9 fL (7.4-11.4) 09/01/21 05:30 Neut # (Auto) 7.1 10^3/uL (1.5-6.6) H 09/01/21 05:30 Lymph # (Auto) 1.1 10^3/uL (1.5-3.5) L 09/01/21 05:30 [place] # (Auto) 0.5 10^3/uL (0.0-1.0) 09/01/21 05:30 Eos # (Auto) 0.0 10^3/uL (0.0-0.7) 09/01/21 05:30 Baso # (Auto) 0.0 10^3/uL (0.0-0.1) 09/01/21 05:30 Absolute Nucleated RBC 0.02 x10^3/uL 09/01/21 05:30 Total Counted 100 08/31/21 05:15 Band Neuts % (Manual) 7 % (0-10) 08/31/21 05:15 Abnorm Lymph % (Manual) 0 % 08/31/21 05:15 Nucleated RBC % 0.2 /100WBC 09/01/21 05:30 Neutrophils # (Manual) 7.0 10^3/uL (1.5-6.6) H 08/31/21 05:15 Lymphocytes # (Manual) 0.8 10^3/uL (1.5-3.5) L 08/31/21 05:15 Monocytes # (Manual) 0.2 10^3/uL (0.0-1.0) 08/31/21 05:15 Eosinophils # (Manual) 0.2 10^3/uL (0-0.7) 08/31/21 05:15 Basophils # (Manual) 0.0 10^3/uL (0-0.1) 08/31/21 05:15 Nucleated RBCs 1 % 08/30/21 16:30 Differential Comment MANUAL DIFFERENTIAL 08/31/21 05:15 WBC Morphology NORMAL APPEARANCE (NORMAL) 08/31/21 05:15 Platelet Estimate NORMAL (130-450,000) (NORMAL) 08/31/21 05:15 Platelet Morphology NORMAL APPEARANCE (NORMAL) 08/31/21 05:15 RBC Morph Micro Appear 1+ POLYCHROMASIA (NORMAL) 08/31/21 05:15 VBG pH 7.256 (7.31-7.41) L 08/30/21 16:30 VBG pCO2 75.1 mmHg (41-51) H 08/30/21 16:30 VBG pO2 31.7 mmHg (25-47) 08/30/21 16:30 VBG HCO3 32.6 mmol/L (23-28) H 08/30/21 16:30 VBG Total CO2 34.9 mmol/L (24-29) H 08/30/21 16:30 VBG O2 Saturation 58.2 % (60-80) L 08/30/21 16:30 VBG Base Excess 2.6 mmol/L (-2 - +2) H 08/30/21 16:30 Sodium 136 mmol/L (135-145) 09/01/21 12:10 Potassium 4.6 mmol/L (3.5-5.0) 09/01/21 12:10 Chloride 93 mmol/L (101-111) L 09/01/21 12:10 Carbon Dioxide 34 mmol/L (21-32) H 09/01/21 12:10 Anion Gap 9.0 (6-13) 09/01/21 12:10 BUN 30 mg/dL (6-20) H 09/01/21 12:10 Creatinine 0.5 mg/dL (0.6-1.2) L 09/01/21 12:10 Estimated GFR (MDRD) 162 (>89) 09/01/21 12:10 Glucose 162 mg/dL (70-100) H 09/01/21 12:10 Estimat Average Glucose 134 mg/dL (70-100) H 08/31/21 05:15 Hemoglobin A1c % 6.3 % (4.27-6.07) H 08/31/21 05:15 Calcium 8.7 mg/dL (8.5-10.3) 09/01/21 12:10 Phosphorus 3.3 mg/dL (2.5-4.6) 08/30/21 16:30 Nasal Adenovirus (PCR) NOT DETECTED 08/30/21 16:15 Nasal B. parapertussis DNA (PCR) NOT DETECTED 08/30/21 16:15 Nasal Coronavir 229E PCR NOT DETECTED 08/30/21 16:15 Nasal Coronavir HKU1 PCR NOT DETECTED 08/30/21 16:15 Nasal Coronavir NL63 PCR NOT DETECTED 08/30/21 16:15 Nasal Coronavir OC43 PCR NOT DETECTED 08/30/21 16:15 Nasal Enterovir/Rhinovir PCR NOT DETECTED 08/30/21 16:15 Nasal Influenza B PCR NOT DETECTED 08/30/21 16:15 Nasal Influenza A PCR NOT DETECTED 08/30/21 16:15 Nasal Parainfluen 1 PCR NOT DETECTED 08/30/21 16:15 Nasal Parainfluen 2 PCR DETECTED A 08/30/21 16:15 Nasal Parainfluen 3 PCR NOT DETECTED 08/30/21 16:15 Nasal Parainfluen 4 PCR NOT DETECTED 08/30/21 16:15 Nasal RSV (PCR) NOT DETECTED 08/30/21 16:15 Nasal B.pertussis DNA PCR NOT DETECTED 08/30/21 16:15 Nasal C.pneumoniae (PCR) NOT DETECTED 08/30/21 16:15 Osbaldo Human Metapneumo PCR NOT DETECTED 08/30/21 16:15 Nasal M.pneumoniae (PCR) NOT DETECTED 08/30/21 16:15 Nasal SARS-CoV-2 (PCR) NOT DETECTED 08/30/21 16:15 ABX Reporting Has patient been on IV antibiotics over the past 48 hours?: No
[2021-09-01] MEDS: OLANZapine ODT 5 MG TABLET TL SCH (20:54)
[2021-09-01] MEDS: OXYBUTYNIN 5MG TABLET PO SCH (20:54)
[2021-09-02] MEDS: SODIUM CHLORIDE FLUSH 0.9% 10 ML SYRINGE IVP SCH ×3 (00:27→20:45)
[2021-09-02 05:18] LABS: BASOPHILS % (AUTO) 0.3 %; EOSINOPHILS % (AUTO) 0.4 %; HCT - HEMATOCRIT 42.2 % (42.0-52.0); LYMPHOCYTES # (AUTO) 1.2 10^3/uL (1.5-3.5); LYMPHOCYTES % (AUTO) 11.8 %; MEAN CORPUSCULAR HEMOGLOBIN 29.4 pg (27.0-31.0); MEAN CORPUSCULAR HGB CONC 33.2 g/dL (32.0-36.0); MEAN CORPUSCULAR VOLUME 88.5 fL (80.0-94.0); MEAN PLATELET VOLUME 10.2 fL (7.4-11.4); MONOCYTES # (AUTO) 0.7 10^3/uL (0.0-1.0); MONOCYTES % (AUTO) 6.8 %; NEUTROPHILS # (AUTO) 8.1 10^3/uL (1.5-6.6); NEUTROPHILS % (AUTO) 78.1 %; NRBC ABSOLUTE COUNT (AUTO) 0.03 x10^3/uL; NUCLEATED RED BLOOD CELLS AUTO 0.3 /100WBC; PLT - PLATELET COUNT 204 10^3/uL (130-450); RED BLOOD COUNT 4.77 10^6/uL (4.70-6.10); RED CELL DISTRIBUTION WIDTH 12.5 % (12.0-15.0); WHITE BLOOD COUNT 10.3 x10^3/uL (4.8-10.8)
[2021-09-02 05:32] LABS: CALCIUM 8.3 mg/dL (8.5-10.3); CREATININE 0.5 mg/dL (0.6-1.2); POTASSIUM 4.6 mmol/L (3.5-5.0)
[2021-09-02] MEDS: IPRATROPIUM/ALBUTEROL 3 ML NEB INH SCH ×4 (06:58→18:44)
[2021-09-02] MEDS: FORMOTEROL FUMARATE NEB 20 MCG/2 ML INH SCH ×2 (06:58→18:44)
[2021-09-02] MEDS: BUDESONIDE 0.5 MG/2 ML NEB INH SCH ×2 (06:58→18:44)
[2021-09-02] MEDS: INSULIN ASPART 300 UNIT/3 ML PEN SUBQ SCH ×4 (07:54→20:45)
[2021-09-02] MEDS: cefTRIAXone 1 GM in SODIUM CHLORIDE 0.9% MINIBAG 100 ML IV SCH (09:00)
[2021-09-02] MEDS: INSULIN GLARGINE 300 UNIT/3 ML PEN SUBQ SCH (09:01)
[2021-09-02] MEDS: ENOXAPARIN 40 MG/0.4 ML SYRINGE SUBQ SCH (09:02)
[2021-09-02] MEDS: methylPREDNISolone SUCCINATE 40 MG/ML VIAL IVP SCH ×2 (09:02→20:45)
[2021-09-02] MEDS: OXYBUTYNIN 5MG TABLET PO SCH ×2 (09:03→20:45)
[2021-09-02] MEDS: FINASTERIDE 5 MG TABLET PO SCH (09:04)
[2021-09-02] MEDS: TAMSULOSIN 0.4 MG CAPSULE PO SCH (09:04)
[2021-09-02] MEDS: NICOTINE 21 MG PATCH TOP SCH (09:04)
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
[2021-09-02] MEDS: OLANZapine ODT 5 MG TABLET TL SCH (20:45)
[2021-09-03] MEDS: SODIUM CHLORIDE FLUSH 0.9% 10 ML SYRINGE IVP SCH ×2 (00:02→12:16)
[2021-09-03 05:07] LABS: BASOPHILS % (AUTO) 0.5 %; HCT - HEMATOCRIT 46.9 % (42.0-52.0); HGB - HEMOGLOBIN 15.4 g/dL (14.0-18.0); LYMPHOCYTES % (AUTO) 18.1 %; MEAN CORPUSCULAR HEMOGLOBIN 29.1 pg (27.0-31.0); MEAN CORPUSCULAR HGB CONC 32.8 g/dL (32.0-36.0); MEAN CORPUSCULAR VOLUME 88.7 fL (80.0-94.0); MEAN PLATELET VOLUME 9.7 fL (7.4-11.4); MONOCYTES % (AUTO) 8.7 %; NEUTROPHILS % (AUTO) 67.5 %; PLT - PLATELET COUNT 235 10^3/uL (130-450); RED BLOOD COUNT 5.29 10^6/uL (4.70-6.10); WHITE BLOOD COUNT 7.6 x10^3/uL (4.8-10.8)
[2021-09-03 05:19] LABS: CALCIUM 8.8 mg/dL (8.5-10.3); CREATININE 0.7 mg/dL (0.6-1.2); POTASSIUM 5.7 mmol/L (3.5-5.0)
[2021-09-03 05:26] LABS: ABNORMAL LYMPHS % (MANUAL) 0 %
[2021-09-03 06:41] LABS: BAND NEUTROPHILS % (MANUAL) 1 %; DIFFERENTIAL COMMENT MANUAL DIFFERENTIAL; LYMPHOCYTES # (MANUAL) 1.1 10^3/uL (1.5-3.5); LYMPHOCYTES % (MANUAL) 14 %; METAMYELOCYTES % (MANUAL) 2 %; MONOCYTES # (MANUAL) 0.8 10^3/uL (0.0-1.0); MYELOCYTES % (MANUAL) 2 %; NEUTROPHILS # (MANUAL) 5.5 10^3/uL (1.5-6.6); PLATELET ESTIMATE, MANUAL NORMAL (130-450,000) (NORMAL); RBC MORPHOLOGY (MULTIPLE) NORMAL APPEARANCE (NORMAL)
[2021-09-03] MEDS: IPRATROPIUM/ALBUTEROL 3 ML NEB INH SCH ×2 (07:28→11:22)
[2021-09-03] MEDS: FORMOTEROL FUMARATE NEB 20 MCG/2 ML INH SCH (07:28)
[2021-09-03] MEDS: BUDESONIDE 0.5 MG/2 ML NEB INH SCH (07:28)
[2021-09-03] MEDS: TAMSULOSIN 0.4 MG CAPSULE PO SCH (10:27)
[2021-09-03] MEDS: FINASTERIDE 5 MG TABLET PO SCH (10:28)
[2021-09-03] MEDS: cefTRIAXone 1 GM in SODIUM CHLORIDE 0.9% MINIBAG 100 ML IV SCH (10:29)
[2021-09-03] MEDS: OXYBUTYNIN 5MG TABLET PO SCH (10:29)
[2021-09-03] MEDS: methylPREDNISolone SUCCINATE 40 MG/ML VIAL IVP SCH (10:33)
[2021-09-03] MEDS: INSULIN GLARGINE 300 UNIT/3 ML PEN SUBQ SCH (10:39)
[2021-09-03] MEDS: INSULIN ASPART 300 UNIT/3 ML PEN SUBQ SCH ×2 (10:40→12:08)
[2021-09-03] MEDS: ENOXAPARIN 40 MG/0.4 ML SYRINGE SUBQ SCH (10:40)
[2021-09-03 11:04] VITALS: BP 139/54
--- NOTE | 2021-09-03 11:56 | Discharge Plan ---
"Discharge Plan for SNF / [facility] - Discharge Plan And Transition Orders Problem Reviewed?: Yes Disposition: 03 SNF DC/Xfer Condition: Fair Allergies and Adverse Reactions: Allergies Allergy/AdvReac Type Severity Reaction Status Date / Time No Known Drug Allergies Allergy Verified 08/30/21 16:30 Health Concerns: Patient admitted with a COPD exacerbation. He tested Covid negative. He is requiring new home oxygen order and new inhalers are ordered. He is deconditioned and requiring a new front wheel walker. Because of his traumatic brain injury plus schizophrenia, he has marked functional impairment and needs repeat cueing and reminders. A referral has been sent to Home Health for RN, bath aide, PT and OT. Plan of Treatment: As above and resume all pre-hospital meds. New inhalers and Medrol tapering schedule ordered. Care Goals: Improvement in symptoms and stabilization are the goals. Assessment: Orders for his assisted living facility are provided. - SNF / [facility] Transition Orders Admit to (Facility): [facility] Discharge Diagnosis: (1) Acute and chronic respiratory failure with hypoxia (2) COPD exacerbation (3) Parainfluenza infection (4) TBI (traumatic brain injury) (5) Schizophrenia Medicare Certification Statement: I certify that Post Hospital halfway care is medically necessary on a continuing basis for any of the conditions for which she/he is receiving care during hospitalization. Notify PCP of admission and forward orders to primary provider for signature. Weight on admission and: Monthly Other Notification Orders: Call PCP immediately if patient develops dyspnea, chest pain/tightness or edema. House Bowel Program: Yes Additional Bowel Program Orders: If no BM after 2 days, nurse may give M.O.M. 30ml PO PRN and/or ducolax Supp 1 TN and/or MARLY 250mg P.O., and/or senna 1-2 tabs PO. On day 3 nurse may give repeat above order until residents constipation is resolved. Annual Influenza Vaccine (between May 07 and December 04): Yes Two-step PPD per [facility] [phone] or approved exception documents: Yes Oxygen Orders: 3L O2 per nasal cannula at rest, 6L of O2 with activity Medication Orders: PLEASE REFER TO THE DISCHARGE MEDICATION LIST. Insulin Orders?: No - Medications New Prescriptions: Albuterol Sulf [Ventolin Hfa Inhaler] 2 puffs INH Q4HR PRN #18 gm PRN Reason: Shortness Of Air/Wheezing Fluticasone/Salmeterol [Advair Hfa 115-21 Mcg Inhaler] 8 gm IH BID #1 inh methylPREDNISolone [Medrol] 4 - 16 mg PO DAILYWM #10 tablet Albuterol Sulf [Ventolin Hfa Inhaler] 2 puffs INH QID #18 gm - Diet Type: Geriatric Texture: Regular Liquids: Thin May have monthly special meal: Yes - Therapies | Activity Therapy: Evaluation | Treat if indicated: PT, OT Rehabilitation Potential: Maintain present ADL Functional Activity: Activity as Tolerated Weight Bearing: Full Weight Assistance Devices: Walker Follow Up: See PCP and/or Tanbark Peeler for a hospital follow-up visit in 1-2 weeks."
[2021-09-03] MEDS: NICOTINE 21 MG PATCH TOP SCH (12:16)
[2021-09-03 12:26] LABS: B. PARAPERTUSSIS- RESP PCR PAN NOT DETECTED; B. PERTUSSIS- RESP PCR PANEL NOT DETECTED; C. PNEUMONIAE- RESP PCR PANEL NOT DETECTED; CORONAVIRUS 229E-RESP PCR NOT DETECTED; CORONAVIRUS HKU1-RESP PCR NOT DETECTED; CORONAVIRUS NL63-RESP PCR NOT DETECTED; CORONAVIRUS OC43-RESP PCR NOT DETECTED; HUMAN METAPNEUMOVIRUS NOT DETECTED; INFLUENZA A- RESP PCR PANEL NOT DETECTED; INFLUENZA B - RESP PCR PANEL NOT DETECTED; M. PNEUMONIAE- RESP PCR PANEL NOT DETECTED; PARAINFLUENZA VIRUS 1 NOT DETECTED; PARAINFLUENZA VIRUS 2 DETECTED; PARAINFLUENZA VIRUS 3 NOT DETECTED; PARAINFLUENZA VIRUS 4 NOT DETECTED; RHINOVIRUS/ENTEROVIRUS NOT DETECTED; RSV- RESP PCR PANEL NOT DETECTED; SARS-CoV-2 -RESP PCR PANEL NOT DETECTED
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
== END 2021-09-03 13:45 | DRG 189 ==
LOC: EDUNIT# → ED 16:07 → MS2 17:27
PROVIDERS: ADMIT Internal Medicine; ATTEND Internal Medicine
DX: J96.01 Acute respiratory failure with hypoxia (principal); J44.9 Chronic obstructive pulmonary disease, unspecified; Z20.822 Contact with and (suspected) exposure to COVID-19; Z99.81 Dependence on supplemental oxygen; J96.21 Acute and chronic respiratory failure with hypoxia; J44.1 Chronic obstructive pulmonary disease with (acute) exacerbation; J10.1 Influenza due to other identified influenza virus with other respiratory manifestations; F20.9 Schizophrenia, unspecified; N40.0 Benign prostatic hyperplasia without lower urinary tract symptoms; I10 Essential (primary) hypertension; T38.0X5A Adverse effect of glucocorticoids and synthetic analogues, initial encounter; Y92.239 Unspecified place in hospital as the place of occurrence of the external cause; R73.9 Hyperglycemia, unspecified; Z79.899 Other long term (current) drug therapy; Z87.820 Personal history of traumatic brain injury
CPT/HCPCS: 36415; 71045; 80048; 82803; 83036; 84100; 85025; 87631; 94640; 94761; 96365; 96375; 97116; 97162; 99285; 99291; A9270; J1650; J1815; J7626; Q0162; 0202U

== ENCOUNTER 2022-10-15 10:05 | Outpatient (CLI) | payer MEDICARE, MEDICAID | END 2022-10-15 23:59 | disposition critical access hospital (66) | LOC: EMS 10:05 | DX: R06.02 Shortness of breath (principal) | CPT/HCPCS: A0425; A0427 ==

== ENCOUNTER 2022-10-15 10:20 | Inpatient (IN) | payer MEDICARE, MEDICAID ==
[2022-10-15] MEDS ORDERED: methylPREDNISolone SUCCINATE 125 MG/2 ML VIAL IVP STA (10:45)
[2022-10-15] MEDS ORDERED: IPRATROPIUM/ALBUTEROL 3 ML NEB INH STA (10:45)
[2022-10-15] MEDS ORDERED: ALBUTEROL NEB 2.5 MG/3 ML INH STA ×2 (10:46→12:07)
[2022-10-15 11:12] LABS: BASOPHILS % (AUTO) 0.3 %; EOSINOPHILS # (AUTO) 0.2 10^3/uL (0.0-0.7); EOSINOPHILS % (AUTO) 3.2 %; HCT - HEMATOCRIT 47.7 % (42.0-52.0); HGB - HEMOGLOBIN 14.9 g/dL (14.0-18.0); LYMPHOCYTES # (AUTO) 0.8 10^3/uL (1.5-3.5); LYMPHOCYTES % (AUTO) 11.9 %; MEAN CORPUSCULAR HGB CONC 31.2 g/dL (32.0-36.0); MEAN PLATELET VOLUME 10.4 fL (7.4-11.4); MONOCYTES # (AUTO) 1.3 10^3/uL (0.0-1.0); MONOCYTES % (AUTO) 19.1 %; NEUTROPHILS # (AUTO) 4.5 10^3/uL (1.5-6.6); NEUTROPHILS % (AUTO) 65.4 %; PLT - PLATELET COUNT 181 10^3/uL (130-450); RED BLOOD COUNT 5.13 10^6/uL (4.70-6.10); RED CELL DISTRIBUTION WIDTH 12.8 % (12.0-15.0); WHITE BLOOD COUNT 6.8 x10^3/uL (4.8-10.8)
--- NOTE | 2022-10-15 11:16 | XRAY Report ---
PROCEDURE: Chest 1 View X-Ray INDICATIONS: cough/COPD TECHNIQUE: One view of the chest was acquired. COMPARISON: 08/30/2021. FINDINGS: Surgical changes and devices: None. Lungs and pleura: Question mild interstitial pulmonary edema. Mediastinum: Mediastinal contours appear normal. Heart size is normal. Bones and chest wall: No suspicious bony lesions. Overlying soft tissues appear unremarkable. IMPRESSION: Question mild interstitial pulmonary edema. Reviewed by: Rafiq Estrada MD on 10/15/2022 11:15 AM PST Approved by: Rafiq Estrada MD on 10/15/2022 11:15 AM PST Station ID: [id number]
[2022-10-15 11:19] LABS: BILIRUBIN,TOTAL 1.1 mg/dL (0.2-1.0); CALCIUM 9.4 mg/dL (8.5-10.3); CREATININE 0.8 mg/dL (0.6-1.2); POTASSIUM 4.5 mmol/L (3.5-5.0); TOTAL PROTEIN 7.9 g/dL (6.7-8.2)
--- NOTE | 2022-10-15 11:20 | ED Physician Documentation ---
PD HPI DYSPNEA - Stated complaint Stated Complaint: COPD - Chief complaint Chief Complaint: Resp - History obtained from History obtained from: Patient, Other (RN from [facility]) - Additional information Additional information: Patient is a 77-year-old male with a history of COPD coming from home place with worsening shortness of breath since last night. Staff there noted that his room air saturations were in the 60s. It is unclear why he was not brought to the hospital sooner.He is not normally on home oxygen. He was previously but our RN Vinod spoke to their staff and he has not been on it for some time.EMS also noted that he was hypoxic which improved on 4 L via nasal cannula. They gave 1 DuoNeb. Patient does have a history of significant tobacco use in the past. He did have a COVID test today which was negative.Patient denies any complaints or pain. Patient has a history of schizophrenia and traumatic brain injury and is not able to provide much meaningful history at this time. Review of Systems Unable to obtain: Other (Unreliable due to history of TBI and schizophrenia) PD PAST MEDICAL HISTORY - Past Medical History Cardiovascular: Hypertension Respiratory: COPD Neuro: Head injury, Other Endocrine/Autoimmune: None GI: None : Benign prostate hypertrophy HEENT: None Psych: Schizophrenia Musculoskeletal: None Derm: None - Present Medications Home Medications: Ambulatory Orders Medication Instructions Recorded Confirmed Finasteride [Proscar] 5 mg PO QPM 08/31/21 10/15/22 Fluticasone 110 Mcg [Flovent] 2 puffs INH BID 08/31/21 10/15/22 OLANZapine [Zyprexa] 7.5 mg PO QPM 08/31/21 10/15/22 Oxybutynin [Ditropan] 5 mg PO BID 08/31/21 10/15/22 Tamsulosin [Flomax] 0.8 mg PO QPM 08/31/21 10/15/22 Albuterol Sulf [Ventolin Hfa 2 puffs INH Q4HR PRN 10/15/22 10/15/22 Inhaler] Albuterol Sulf [Ventolin Hfa 2 puffs INH QID 10/15/22 10/15/22 Inhaler] Cholecalciferol [Vitamin D3] 50 mcg PO DAILY 10/15/22 10/15/22 Fluticasone/Salmeterol [Advair Hfa 1 puffs IH BID 10/15/22 10/15/22 115-21 Mcg Inhaler] - Allergies Allergies/Adverse Reactions: Allergies Allergy/AdvReac Type Severity Reaction Status Date / Time No Known Drug Allergies Allergy Verified 10/15/22 10:29 - Social History Does the pt smoke?: Yes Smoking Status: Current every day smoker Does the pt drink ETOH?: No Does the pt have substance abuse?: No - POLST Patient has POLST: No POLST Status: Full Code PD ED PE NORMAL - General General: Alert and oriented X 3, No acute distress, Well developed/nourished - HEENT HEENT: Atraumatic - Neck Neck: Supple, no meningeal sign - Cardiac Cardiac: RRR - Respiratory Respiratory: No respiratory distress, Other (Diffuse wheezing) - Abdomen Abdomen: Soft, Non tender, Non distended - Extremities Extremities: No edema, No calf tenderness / cord - Neuro Neuro: Alert and oriented X 3, No motor deficit, Normal speech Results - Vitals Vitals: Vital Signs - 24 hr 10/15/22 10/15/22 10/15/22 10:29 10:38 11:00 Temperature 36.9 C Heart Rate 93 85 Respiratory 24 22 22 Rate Blood Pressure 130/71 O2 Saturation 86 L 93 If not protocol 2 : Oxygen Flow, liters/minute 10/15/22 10/15/22 10/15/22 11:03 11:30 12:00 Temperature Heart Rate 73 83 82 Respiratory 28 H 21 20 Rate Blood Pressure 136/72 H 135/68 H 135/70 H O2 Saturation 99 93 87 L If not protocol 2 2 2 : Oxygen Flow, liters/minute 10/15/22 10/15/22 10/15/22 12:04 12:30 13:00 Temperature 36.6 C Heart Rate 86 85 Respiratory 24 20 19 Rate Blood Pressure 135/66 H 135/71 H O2 Saturation 91 L 95 99 If not protocol 3 3 3 : Oxygen Flow, liters/minute 10/15/22 10/15/22 10/15/22 13:08 13:30 13:39 Temperature Heart Rate 78 83 113 H Respiratory 18 16 Rate Blood Pressure 138/93 H O2 Saturation 99 If not protocol : Oxygen Flow, liters/minute 10/15/22 14:00 Temperature Heart Rate 93 Respiratory 19 Rate Blood Pressure 132/59 H O2 Saturation 93 If not protocol : Oxygen Flow, liters/minute Oxygen O2 Source BIPAP Oxygen Flow Rate 2 - EKG (time done) 1107 Rate: Rate (enter#) (78) Rhythm: NSR Ischemia: No: ST elevation c/w ischemia - Labs Labs: Laboratory Tests 10/15/22 10/15/22 10/15/22 10:54 10:54 10:54 WBC 6.8 RBC 5.13 Hgb 14.9 Hct 47.7 MCV 93.0 MCH 29.0 MCHC 31.2 L RDW 12.8 Plt Count 181 MPV 10.4 Neut # (Auto) 4.5 Lymph # (Auto) 0.8 L [place] # (Auto) 1.3 H Eos # (Auto) 0.2 Baso # (Auto) 0.0 Absolute Nucleated RBC 0.00 Nucleated RBC % 0.0 Bld Gas Analysis Time Sample Site ABG pH ABG pCO2 ABG pO2 ABG HCO3 ABG Total CO2 ABG O2 Saturation ABG Base Excess El Test O2 Delivery Device O2 Liters/Min Sodium 141 Potassium 4.5 Chloride 95 L Carbon Dioxide 33 H Anion Gap 13.0 BUN 40 H Creatinine 0.8 Estimated GFR (MDRD) 94 Glucose 116 H Calcium 9.4 Total Bilirubin 1.1 H AST 39 ALT 51 Alkaline Phosphatase 71 B-Natriuretic Peptide Total Protein 7.9 Albumin 4.0 Globulin 3.9 Albumin/Globulin Ratio 1.0 Nasal Adenovirus (PCR) NOT DETECTED Nasal B. parapertussis DNA (PCR) NOT DETECTED Nasal Coronavir 229E PCR NOT DETECTED Nasal Coronavir HKU1 PCR NOT DETECTED Nasal Coronavir NL63 PCR NOT DETECTED Nasal Coronavir OC43 PCR NOT DETECTED Nasal Enterovir/Rhinovir PCR NOT DETECTED Nasal Influenza B PCR NOT DETECTED Nasal Influenza A PCR NOT DETECTED Nasal Parainfluen 1 PCR NOT DETECTED Nasal Parainfluen 2 PCR NOT DETECTED Nasal Parainfluen 3 PCR NOT DETECTED Nasal Parainfluen 4 PCR NOT DETECTED Nasal RSV (PCR) NOT DETECTED Nasal B.pertussis DNA PCR NOT DETECTED Nasal C.pneumoniae (PCR) NOT DETECTED Osbaldo Human Metapneumo PCR NOT DETECTED Nasal M.pneumoniae (PCR) NOT DETECTED Nasal SARS-CoV-2 (PCR) NOT DETECTED 10/15/22 10/15/22 11:19 13:20 WBC RBC Hgb Hct MCV MCH MCHC RDW Plt Count MPV Neut # (Auto) Lymph # (Auto) [place] # (Auto) Eos # (Auto) Baso # (Auto) Absolute Nucleated RBC Nucleated RBC % Bld Gas Analysis Time 1324 Sample Site RIGHT RADIAL ABG pH 7.24 L ABG pCO2 90 H* ABG pO2 86 ABG HCO3 37.8 H ABG Total CO2 40.6 H* ABG O2 Saturation 95 ABG Base Excess 6.6 H El Test POSITIVE O2 Delivery Device NASAL CANNULA O2 Liters/Min 3.00 Sodium Potassium Chloride Carbon Dioxide Anion Gap BUN Creatinine Estimated GFR (MDRD) Glucose Calcium Total Bilirubin AST ALT Alkaline Phosphatase B-Natriuretic Peptide 124 H Total Protein Albumin Globulin Albumin/Globulin Ratio Nasal Adenovirus (PCR) Nasal B. parapertussis DNA (PCR) Nasal Coronavir 229E PCR Nasal Coronavir HKU1 PCR Nasal Coronavir NL63 PCR Nasal Coronavir OC43 PCR Nasal Enterovir/Rhinovir PCR Nasal Influenza B PCR Nasal Influenza A PCR Nasal Parainfluen 1 PCR Nasal Parainfluen 2 PCR Nasal Parainfluen 3 PCR Nasal Parainfluen 4 PCR Nasal RSV (PCR) Nasal B.pertussis DNA PCR Nasal C.pneumoniae (PCR) Osbaldo Human Metapneumo PCR Nasal M.pneumoniae (PCR) Nasal SARS-CoV-2 (PCR) PD Medical Decision Making - ED course Complexity details: reviewed results, re-evaluated patient ED course: Patient is a 77-year-old male from Living facility presenting for evaluation of dyspnea and hypoxia. He has a known history of COPD and has not normally on home oxygen. His room air saturations have been as low as in the 60s per EMS. He has improved via nasal cannula. He is not able to provide much history due to baseline schizophrenia and TBI so history was obtained from paramedics and staff from [facility].He does have diffuse wheezing. He is afebrile. He was given several neb treatments and IV Solu-Medrol. He did require an increase in his oxygen from 2 to 3 L here. His chest x-ray which I reviewed does not show a definitive infiltrate. His white count is normal and he is afebrile. His respiratory panel is also negative. His BNP is 124.As patient is requiring oxygen and does not have home oxygen set up, he requires admission to the hospital. We will also obtain an ABG and given additional treatment. 1325 - Patient's ABG is reviewed and shows respiratory acidosis. Will start on BiPAP and communicated this with RT.Presented the case to admitting hospitalist, Dr. Denson, Who admit the patient to the ICU. There is current ICU bed available. Discussed antibiotics with her and she is okay with making a decision whether to initiate antibiotics or not for this patient. - Critical Care Time(min): 32 Time Includes: Direct patient care, Review records, Reassess patient, Document care Data interpretation: Labs, ABG, CXR Departure - Departure Disposition: 66 [facility] DC/Xfer Clinical Impression: COPD exacerbation, Acute respiratory failure with hypoxia and hypercapnia Condition: Fair Discharge Date/Time: 10/15/22 15:26
[2022-10-15 11:54] LABS: B. PARAPERTUSSIS- RESP PCR PAN NOT DETECTED; B. PERTUSSIS- RESP PCR PANEL NOT DETECTED; C. PNEUMONIAE- RESP PCR PANEL NOT DETECTED; CORONAVIRUS 229E-RESP PCR NOT DETECTED; CORONAVIRUS HKU1-RESP PCR NOT DETECTED; CORONAVIRUS NL63-RESP PCR NOT DETECTED; CORONAVIRUS OC43-RESP PCR NOT DETECTED; HUMAN METAPNEUMOVIRUS NOT DETECTED; INFLUENZA A- RESP PCR PANEL NOT DETECTED; INFLUENZA B - RESP PCR PANEL NOT DETECTED; M. PNEUMONIAE- RESP PCR PANEL NOT DETECTED; PARAINFLUENZA VIRUS 1 NOT DETECTED; PARAINFLUENZA VIRUS 2 NOT DETECTED; PARAINFLUENZA VIRUS 3 NOT DETECTED; PARAINFLUENZA VIRUS 4 NOT DETECTED; RHINOVIRUS/ENTEROVIRUS NOT DETECTED; RSV- RESP PCR PANEL NOT DETECTED; SARS-CoV-2 -RESP PCR PANEL NOT DETECTED
[2022-10-15 13:26] LABS: ABG PH 7.24 (7.35-7.45)
[2022-10-15 13:27] LABS: ABG BASE EXCESS 6.6 mmol/L (-2.0-3.0); ABG HCO3 37.8 mmol/L (22.0-26.0); ABG OXYGEN SATURATION 95 % (94-98); ABG PO2 86 mmHg (80-100); ALLEN TEST POSITIVE
[2022-10-15 13:30] LABS: ABG PCO2 90 mmHg (34-45); ABG TCO2 40.6 MMOL/L (21.0-29.0)
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
[2022-10-15] MEDS ORDERED: ACETAMINOPHEN 325 MG TABLET PO PRN (14:09)
[2022-10-15] MEDS ORDERED: ONDANSETRON 4 MG/2 ML VIAL IVP PRN (14:09)
--- NOTE | 2022-10-15 15:16 | PHARMACY PROGRESS NOTE ---
- Best Possible Medication History Admit Date and Time: 10/15/22 1409 Processed by: Pharmacy Medication History completed: Yes Patient Interview: Pt unable to participate Secondary Source(s): Facility MAR as ONLY source As the person ultimately responsible for medication therapy, providers are able to order a medication from an existing home medication list in [facility] via the "Reconcile Routine" prior to Confirmation of that medication by network support. Such practice is discouraged except when the physician, in their clinical judgment, deems that a medical need exists for a medication without regard to previous use.
[2022-10-15 15:57] LABS: ABG PH 7.32 (7.35-7.45)
[2022-10-15 15:58] LABS: ABG BASE EXCESS 6.6 mmol/L (-2.0-3.0); ABG HCO3 35.5 mmol/L (22.0-26.0); ABG OXYGEN SATURATION 93 % (94-98); ABG PO2 69 mmHg (80-100); ABG TCO2 37.7 MMOL/L (21.0-29.0); ALLEN TEST POSITIVE
[2022-10-15 16:01] LABS: ABG PCO2 71 mmHg (34-45)
[2022-10-15] MEDS ORDERED: IPRATROPIUM/ALBUTEROL 3 ML NEB INH PRN (18:51)
[2022-10-15] MEDS: SODIUM CHLORIDE FLUSH 0.9% 10 ML SYRINGE IVP SCH ×2 (19:26→21:43)
[2022-10-15] MEDS: FORMOTEROL FUMARATE NEB 20 MCG/2 ML INH SCH (20:01)
[2022-10-15] MEDS: IPRATROPIUM/ALBUTEROL 3 ML NEB INH SCH (20:01)
[2022-10-15] MEDS: BUDESONIDE 0.5 MG/2 ML NEB INH SCH (20:01)
[2022-10-15] MEDS: TAMSULOSIN 0.4 MG CAPSULE PO SCH (20:42)
[2022-10-15] MEDS: MONTELUKAST 10 MG TABLET PO SCH (20:42)
[2022-10-15] MEDS: FINASTERIDE 5 MG TABLET PO SCH (20:42)
[2022-10-15] MEDS: guaiFENesin 600 MG TABLET PO SCH (20:42)
[2022-10-15] MEDS: OLANZapine ODT 5 MG TABLET TL SCH (20:42)
[2022-10-15] MEDS: methylPREDNISolone SUCCINATE 40 MG/ML VIAL IVP SCH (21:43)
[2022-10-16] MEDS: methylPREDNISolone SUCCINATE 40 MG/ML VIAL IVP SCH ×3 (05:38→21:45)
[2022-10-16] MEDS: SODIUM CHLORIDE FLUSH 0.9% 10 ML SYRINGE IVP SCH ×4 (05:38→21:45)
[2022-10-16 06:25] LABS: ABG BASE EXCESS 8.7 mmol/L (-2.0-3.0); ABG HCO3 38.7 mmol/L (22.0-26.0); ABG OXYGEN SATURATION 92 % (94-98); ABG PH 7.29 (7.35-7.45); ABG PO2 66 mmHg (80-100)
[2022-10-16 06:27] LABS: ABG PCO2 82 mmHg (34-45); ABG TCO2 41.2 MMOL/L (21.0-29.0); ALLEN TEST POSITIVE
[2022-10-16] MEDS: FORMOTEROL FUMARATE NEB 20 MCG/2 ML INH SCH (06:45)
[2022-10-16] MEDS: IPRATROPIUM/ALBUTEROL 3 ML NEB INH SCH ×4 (06:45→18:54)
[2022-10-16] MEDS: BUDESONIDE 0.5 MG/2 ML NEB INH SCH ×2 (06:45→18:53)
[2022-10-16 08:07] LABS: BASOPHILS % (AUTO) 0.3 %; HCT - HEMATOCRIT 43.1 % (42.0-52.0); HGB - HEMOGLOBIN 13.1 g/dL (14.0-18.0); LYMPHOCYTES # (AUTO) 0.4 10^3/uL (1.5-3.5); LYMPHOCYTES % (AUTO) 7.2 %; MEAN CORPUSCULAR HEMOGLOBIN 28.3 pg (27.0-31.0); MEAN CORPUSCULAR HGB CONC 30.4 g/dL (32.0-36.0); MEAN CORPUSCULAR VOLUME 93.1 fL (80.0-94.0); MEAN PLATELET VOLUME 10.2 fL (7.4-11.4); MONOCYTES # (AUTO) 0.6 10^3/uL (0.0-1.0); MONOCYTES % (AUTO) 10.2 %; NEUTROPHILS # (AUTO) 4.9 10^3/uL (1.5-6.6); NEUTROPHILS % (AUTO) 82.1 %; PLT - PLATELET COUNT 184 10^3/uL (130-450); RED BLOOD COUNT 4.63 10^6/uL (4.70-6.10); RED CELL DISTRIBUTION WIDTH 12.6 % (12.0-15.0)
[2022-10-16 08:16] LABS: CREATININE 0.5 mg/dL (0.6-1.2); MAGNESIUM 2.2 mg/dL (1.7-2.8); POTASSIUM 5.3 mmol/L (3.5-5.0)
[2022-10-16] MEDS: CHOLECALCIFEROL 25 MCG TABLET PO SCH (08:50)
[2022-10-16] MEDS: guaiFENesin 600 MG TABLET PO SCH ×2 (08:50→20:35)
[2022-10-16] MEDS: ENOXAPARIN 40 MG/0.4 ML SYRINGE SUBQ SCH (08:50)
[2022-10-16] MEDS: NICOTINE 21 MG PATCH TOP SCH (08:51)
--- NOTE | 2022-10-16 13:48 | PROVIDER PROGRESS NOTE ---
Subjective - Subjective Pt reports feeling: No change (He is minimally communicative. He only asks for coffee whenever you approach him. He appears very comfortable, is watching TV while he is wearing his BiPAP mask) Objective - Vital Signs/Intake & Output Vital Signs: Vital Signs Temp Pulse Pulse Resp BP Pulse Ox O2 Flow Rate 10/16/22 13:00 66 25 H 123/66 95 10/16/22 12:00 36.6 C 56 L 18 138/71 H 96 6 10/16/22 11:00 61 24 126/71 93 10/16/22 10:13 68 10/16/22 10:08 63 22 10/16/22 10:00 74 24 125/90 H 94 6 Intake & Output: Intake & Output 10/13/22 10/14/22 10/15/22 10/16/22 23:59 23:59 23:59 23:59 Intake Total 1590 1000 Balance 1590 1000 - Objective General Appearance: positive: No acute distress, Alert, Other (wearing O2 via BIPAP mask) Eyes Bilateral: positive: Normal inspection, No lid inflammation ENT: positive: No signs of dehydration Neck: positive: Nml inspection Respiratory: positive: No respiratory distress (while on BIPAP and tolerates time off to eat), Other (No wheezing, minimal air movement in all lung neff) Cardiovascular: positive: No murmur (distant heart sounds over lung sounds) Abdomen: positive: Other (Moderately distended, hypertympanic (filled with air which he must be swallowing)) Skin: positive: Warm, Dry Neurologic/Psychiatric: positive: Other (Minimally communicative, motor appears grossly normal.) - Lab Results Fish Bones: 10/16/22 08:00 10/16/22 08:00 Other Labs: Lab Results x24hrs 10/16/22 10/16/22 10/16/22 Range/Units 08:00 08:00 06:15 WBC 6.0 (4.8-10.8) x10^3/uL RBC 4.63 L (4.70-6.10) 10^6/uL Hgb 13.1 L (14.0-18.0) g/dL Hct 43.1 (42.0-52.0) % MCV 93.1 (80.0-94.0) fL MCH 28.3 (27.0-31.0) pg MCHC 30.4 L (32.0-36.0) g/dL RDW 12.6 (12.0-15.0) % Plt Count 184 (130-450) 10^3/uL MPV 10.2 (7.4-11.4) fL Neut # (Auto) 4.9 (1.5-6.6) 10^3/uL Lymph # (Auto) 0.4 L (1.5-3.5) 10^3/uL [place] # (Auto) 0.6 (0.0-1.0) 10^3/uL Eos # (Auto) 0.0 (0.0-0.7) 10^3/uL Baso # (Auto) 0.0 (0.0-0.1) 10^3/uL Absolute Nucleated RBC 0.00 x10^3/uL Nucleated RBC % 0.0 /100WBC Bld Gas Analysis Time 0620 Sample Site RIGHT RADIAL ABG pH 7.29 L (7.35-7.45) ABG pCO2 82 H* (34-45) mmHg ABG pO2 66 L (80-100) mmHg ABG HCO3 38.7 H (22.0-26.0) mmol/L ABG Total CO2 41.2 H* (21.0-29.0) MMOL/L ABG O2 Saturation 92 L (94-98) % ABG Base Excess 8.7 H (-2.0-3.0) mmol/L El Test POSITIVE O2 Delivery Device BiPAP FiO2 40.00 EPAP 5 cmH2O IPAP 16 cmH2O Sodium 135 (135-145) mmol/L Potassium 5.3 H (3.5-5.0) mmol/L Chloride 92 L (101-111) mmol/L Carbon Dioxide 32 (21-32) mmol/L Anion Gap 11.0 (6-13) BUN 36 H (6-20) mg/dL Creatinine 0.5 L (0.6-1.2) mg/dL Estimated GFR (MDRD) 162 (>89) Glucose 165 H (70-100) mg/dL Calcium 9.0 (8.5-10.3) mg/dL Magnesium 2.2 (1.7-2.8) mg/dL Nasal Screen MRSA (PCR) (NEGATIVE) 10/15/22 10/15/22 Range/Units 15:50 15:26 WBC (4.8-10.8) x10^3/uL RBC (4.70-6.10) 10^6/uL Hgb (14.0-18.0) g/dL Hct (42.0-52.0) % MCV (80.0-94.0) fL MCH (27.0-31.0) pg MCHC (32.0-36.0) g/dL RDW (12.0-15.0) % Plt Count (130-450) 10^3/uL MPV (7.4-11.4) fL Neut # (Auto) (1.5-6.6) 10^3/uL Lymph # (Auto) (1.5-3.5) 10^3/uL [place] # (Auto) (0.0-1.0) 10^3/uL Eos # (Auto) (0.0-0.7) 10^3/uL Baso # (Auto) (0.0-0.1) 10^3/uL Absolute Nucleated RBC x10^3/uL Nucleated RBC % /100WBC Bld Gas Analysis Time 1555 Sample Site RIGHT RADIAL ABG pH 7.32 L (7.35-7.45) ABG pCO2 71 H* (34-45) mmHg ABG pO2 69 L (80-100) mmHg ABG HCO3 35.5 H (22.0-26.0) mmol/L ABG Total CO2 37.7 H (21.0-29.0) MMOL/L ABG O2 Saturation 93 L (94-98) % ABG Base Excess 6.6 H (-2.0-3.0) mmol/L El Test POSITIVE O2 Delivery Device BiPAP FiO2 40.00 EPAP 5 cmH2O IPAP 16 cmH2O Sodium (135-145) mmol/L Potassium (3.5-5.0) mmol/L Chloride (101-111) mmol/L Carbon Dioxide (21-32) mmol/L Anion Gap (6-13) BUN (6-20) mg/dL Creatinine (0.6-1.2) mg/dL Estimated GFR (MDRD) (>89) Glucose (70-100) mg/dL Calcium (8.5-10.3) mg/dL Magnesium (1.7-2.8) mg/dL Nasal Screen MRSA (PCR) NEGATIVE (NEGATIVE) Assessment/Plan - Problem List (1) Acute respiratory failure with hypoxia and hypercapnia Impression: Likely from his COPD exacerbation and continued smoking Plan: Remain in ICU because he needs BiPAP for his hypercapnia Follow ABG daily and monitor saturations to adjust his BiPAP settings and to eventually wean down to mask or cannula supplemental O2 Treat the underlying problem Will allow OOB to chair for upright position, even on BIPAP (2) COPD exacerbation Conclusion/Plan: Plan: We will continue with nebulized bronchodilators and inhaled steroids, also give IV steroids, Montelukast and Mucinex. Continue supplemental oxygen, with target O2 sat 89-94% in a COPDer. (3) Schizophrenia Conclusion/Plan: Plan: We will continue his usual antipsychotic meds while here (4) TBI (traumatic brain injury) Conclusion/Plan: This has caused cognitive brain impairement (5) Tobacco abuse (Z72.0) Plan: Continue nicotine patch
[2022-10-16] MEDS: FINASTERIDE 5 MG TABLET PO SCH (20:35)
[2022-10-16] MEDS: OLANZapine ODT 5 MG TABLET TL SCH (20:35)
[2022-10-16] MEDS: TAMSULOSIN 0.4 MG CAPSULE PO SCH (20:35)
[2022-10-16] MEDS: MONTELUKAST 10 MG TABLET PO SCH (20:35)
[2022-10-17 04:45] LABS: BASOPHILS % (AUTO) 0.3 %; HCT - HEMATOCRIT 43.1 % (42.0-52.0); HGB - HEMOGLOBIN 13.1 g/dL (14.0-18.0); LYMPHOCYTES # (AUTO) 0.5 10^3/uL (1.5-3.5); LYMPHOCYTES % (AUTO) 7.4 %; MEAN CORPUSCULAR HEMOGLOBIN 28.7 pg (27.0-31.0); MEAN CORPUSCULAR HGB CONC 30.4 g/dL (32.0-36.0); MEAN CORPUSCULAR VOLUME 94.3 fL (80.0-94.0); MEAN PLATELET VOLUME 10.3 fL (7.4-11.4); MONOCYTES # (AUTO) 0.7 10^3/uL (0.0-1.0); MONOCYTES % (AUTO) 10.3 %; NEUTROPHILS # (AUTO) 5.4 10^3/uL (1.5-6.6); NEUTROPHILS % (AUTO) 81.8 %; PLT - PLATELET COUNT 195 10^3/uL (130-450); RED BLOOD COUNT 4.57 10^6/uL (4.70-6.10); RED CELL DISTRIBUTION WIDTH 12.3 % (12.0-15.0); WHITE BLOOD COUNT 6.6 x10^3/uL (4.8-10.8)
[2022-10-17 04:51] LABS: CALCIUM 9.8 mg/dL (8.5-10.3); CREATININE 0.6 mg/dL (0.6-1.2); POTASSIUM 5.3 mmol/L (3.5-5.0)
[2022-10-17] MEDS: IPRATROPIUM/ALBUTEROL 3 ML NEB INH SCH ×4 (05:50→18:50)
[2022-10-17] MEDS: BUDESONIDE 0.5 MG/2 ML NEB INH SCH ×2 (05:50→18:50)
[2022-10-17] MEDS: methylPREDNISolone SUCCINATE 40 MG/ML VIAL IVP SCH ×3 (05:59→21:33)
[2022-10-17] MEDS: SODIUM CHLORIDE FLUSH 0.9% 10 ML SYRINGE IVP PRN (05:59)
[2022-10-17 06:14] LABS: ABG PH 7.39 (7.35-7.45)
[2022-10-17 06:15] LABS: ABG BASE EXCESS 12.4 mmol/L (-2.0-3.0); ABG HCO3 40.7 mmol/L (22.0-26.0); ABG OXYGEN SATURATION 94 % (94-98); ABG PO2 70 mmHg (80-100)
[2022-10-17 06:16] LABS: ABG PCO2 70 mmHg (34-45); ABG TCO2 42.9 MMOL/L (21.0-29.0)
[2022-10-17 06:17] LABS: ABG RESPIRATORY RATE 14 b/min; ALLEN TEST POSITIVE
[2022-10-17] MEDS: NICOTINE 21 MG PATCH TOP SCH (08:03)
[2022-10-17] MEDS: CHOLECALCIFEROL 25 MCG TABLET PO SCH (08:03)
[2022-10-17] MEDS: ENOXAPARIN 40 MG/0.4 ML SYRINGE SUBQ SCH (08:03)
[2022-10-17] MEDS: guaiFENesin 600 MG TABLET PO SCH ×2 (08:03→20:51)
[2022-10-17] MEDS: SODIUM CHLORIDE FLUSH 0.9% 10 ML SYRINGE IVP SCH ×3 (08:04→21:34)
[2022-10-17 11:46] LABS: ABG HCO3 39.1 mmol/L (22.0-26.0); ABG OXYGEN SATURATION 90 % (94-98); ABG PH 7.42 (7.35-7.45); ALLEN TEST POSITIVE
[2022-10-17 11:48] LABS: ABG PCO2 61 mmHg (34-45); ABG PO2 55 mmHg (80-100)
--- NOTE | 2022-10-17 17:50 | PROVIDER PROGRESS NOTE ---
Subjective - Subjective Pt reports feeling: Improved (He is able to speak, now that he can take off BiPAP during the day, wears nasal cannula. Asks for "more coffee" repeatedly.) Objective - Vital Signs/Intake & Output Reviewed Vital Signs: Yes Vital Signs: Vital Signs Temp Pulse Resp BP Pulse Ox O2 Flow Rate 10/17/22 17:00 72 24 120/88 H 92 4 10/17/22 16:38 36.9 C 10/17/22 16:00 51 L 24 132/76 H 92 4 10/17/22 15:00 59 L 31 H 132/73 H 91 L 4 10/17/22 14:00 60 25 H 125/67 93 Intake & Output: Intake & Output 10/14/22 10/15/22 10/16/22 10/17/22 23:59 23:59 23:59 23:59 Intake Total 1590 2360 2660 Output Total 350 0 Balance 1590 2009 2660 - Objective General Appearance: positive: No acute distress, Alert Eyes Bilateral: positive: Normal inspection, No lid inflammation ENT: positive: ENT inspection nml, No signs of dehydration Neck: positive: Nml inspection, No JVD Respiratory: positive: No respiratory distress (wearing O2 n.c.), Other (Poor air movement, prolonged exp phase, but no wheezing.) Cardiovascular: positive: No murmur Abdomen: positive: Non-tender, No distention Skin: positive: Warm, Dry, Other (Dark tanned, weathered skin and heavily wrin kled face and arms) Neurologic/Psychiatric: positive: Motor nml, Other (Poor memory, cannot answer with any details, voice is soft, normal speech.) - Lab Results Fish Bones: 10/18/22 09:29 10/18/22 09:29 Other Labs: Lab Results x24hrs 10/17/22 10/17/22 10/17/22 Range/Units 11:38 05:55 04:25 WBC (4.8-10.8) x10^3/uL RBC (4.70-6.10) 10^6/uL Hgb (14.0-18.0) g/dL Hct (42.0-52.0) % MCV (80.0-94.0) fL MCH (27.0-31.0) pg MCHC (32.0-36.0) g/dL RDW (12.0-15.0) % Plt Count (130-450) 10^3/uL MPV (7.4-11.4) fL Neut # (Auto) (1.5-6.6) 10^3/uL Lymph # (Auto) (1.5-3.5) 10^3/uL [place] # (Auto) (0.0-1.0) 10^3/uL Eos # (Auto) (0.0-0.7) 10^3/uL Baso # (Auto) (0.0-0.1) 10^3/uL Absolute Nucleated RBC x10^3/uL Nucleated RBC % /100WBC Bld Gas Analysis Time 1138 0610 Sample Site LEFT RADIAL RIGHT RADIAL ABG pH 7.42 7.39 (7.35-7.45) ABG pCO2 61 H* 70 H* (34-45) mmHg ABG pO2 55 L* 70 L (80-100) mmHg ABG HCO3 39.1 H 40.7 H (22.0-26.0) mmol/L ABG Total CO2 41.0 H* 42.9 H* (21.0-29.0) MMOL/L ABG O2 Saturation 90 L 94 (94-98) % ABG Base Excess 12.0 H 12.4 H (-2.0-3.0) mmol/L El Test POSITIVE POSITIVE Respiration Rate 14 b/min O2 Delivery Device NASAL CANNULA BiPAP O2 Liters/Min 2.00 LPM FiO2 40.00 EPAP 5 cmH2O IPAP 16 cmH2O Sodium 137 (135-145) mmol/L Potassium 5.3 H (3.5-5.0) mmol/L Chloride 91 L (101-111) mmol/L Carbon Dioxide 36 H (21-32) mmol/L Anion Gap 10.0 (6-13) BUN 27 H (6-20) mg/dL Creatinine 0.6 (0.6-1.2) mg/dL Estimated GFR (MDRD) 131 (>89) Glucose 174 H (70-100) mg/dL Calcium 9.8 (8.5-10.3) mg/dL 10/17/22 Range/Units 04:25 WBC 6.6 (4.8-10.8) x10^3/uL RBC 4.57 L (4.70-6.10) 10^6/uL Hgb 13.1 L (14.0-18.0) g/dL Hct 43.1 (42.0-52.0) % MCV 94.3 H (80.0-94.0) fL MCH 28.7 (27.0-31.0) pg MCHC 30.4 L (32.0-36.0) g/dL RDW 12.3 (12.0-15.0) % Plt Count 195 (130-450) 10^3/uL MPV 10.3 (7.4-11.4) fL Neut # (Auto) 5.4 (1.5-6.6) 10^3/uL Lymph # (Auto) 0.5 L (1.5-3.5) 10^3/uL [place] # (Auto) 0.7 (0.0-1.0) 10^3/uL Eos # (Auto) 0.0 (0.0-0.7) 10^3/uL Baso # (Auto) 0.0 (0.0-0.1) 10^3/uL Absolute Nucleated RBC 0.00 x10^3/uL Nucleated RBC % 0.0 /100WBC Bld Gas Analysis Time Sample Site ABG pH (7.35-7.45) ABG pCO2 (34-45) mmHg ABG pO2 (80-100) mmHg ABG HCO3 (22.0-26.0) mmol/L ABG Total CO2 (21.0-29.0) MMOL/L ABG O2 Saturation (94-98) % ABG Base Excess (-2.0-3.0) mmol/L El Test Respiration Rate b/min O2 Delivery Device O2 Liters/Min LPM FiO2 EPAP cmH2O IPAP cmH2O Sodium (135-145) mmol/L Potassium (3.5-5.0) mmol/L Chloride (101-111) mmol/L Carbon Dioxide (21-32) mmol/L Anion Gap (6-13) BUN (6-20) mg/dL Creatinine (0.6-1.2) mg/dL Estimated GFR (MDRD) (>89) Glucose (70-100) mg/dL Calcium (8.5-10.3) mg/dL Assessment/Plan - Problem List (1) Acute respiratory failure with hypoxia and hypercapnia Impression: Likely from his COPD exacerbation and continued smoking Plan: Remain in ICU because he may need return to BiPAP for his hypercapnia, probably only at night Follow ABG prn and monitor saturations to adjust any BiPAP settings and also to wean down supplemental O2 via n.c. Continue supplemental oxygen, with target O2 sat 89-94% in a COPDer. Continue to treat his COPD exacerbation Will allow to ambulate Patient has chronic respiratory failure. BiPAP was considered and deemed ineffective. I am ordering a noninvasive home ventilator to reduce hospital readmissions. (2) COPD exacerbation Conclusion/Plan: Plan: We will continue with nebulized bronchodilators and nebulized inhaled steroids. Also continue IV steroids, but will wean those down rapidly, as he is improving quickly. Continue Montelukast and Mucinex. Continue supplemental oxygen, with target O2 sat 89-94% in a COPDer. (3) Schizophrenia Conclusion/Plan: Plan: We will continue his usual antipsychotic meds while here (4) TBI (traumatic brain injury) Conclusion/Plan: This has caused cognitive brain impairment. We got a message that the patient refused to wear his prescribed O2 at [facility], therefore it was picked up by [facility]. Yesterday I asked him why he was not wearing O2 at [facility] and he said "I didn't want to". So I asked him "Why are you wearing the oxygen now?" and his answer was "Because I want to". Since his cognitive impairment appears to be significant, I doubt that we can reason or remind him and definitely cannot force him to wear oxygen Plan: We will request help from Social Work and assisted living care manager, to reach [facility] records department and determine if he has a DPOA who is making medical decisions for him, and will try to contact that person. At this point, the patient is a Full Code as well. We will have to come up with a plan for him to use oxygen, otherwise these repeat admissions with severe hypoxia will recur. (5) Tobacco abuse (Z72.0) Plan: Smoking cessation would be beneficial but he refuses to stop, as per message from [facility] to ED. Continue nicotine patch
[2022-10-17] MEDS: OLANZapine ODT 5 MG TABLET TL SCH (20:51)
[2022-10-17] MEDS: MONTELUKAST 10 MG TABLET PO SCH (20:51)
[2022-10-17] MEDS: TAMSULOSIN 0.4 MG CAPSULE PO SCH (20:51)
[2022-10-17] MEDS: FINASTERIDE 5 MG TABLET PO SCH (20:51)
[2022-10-18] MEDS: methylPREDNISolone SUCCINATE 40 MG/ML VIAL IVP SCH ×3 (05:53→21:39)
[2022-10-18] MEDS: SODIUM CHLORIDE FLUSH 0.9% 10 ML SYRINGE IVP PRN ×2 (05:54→21:39)
[2022-10-18] MEDS: BUDESONIDE 0.5 MG/2 ML NEB INH SCH ×2 (05:57→18:25)
[2022-10-18] MEDS: IPRATROPIUM/ALBUTEROL 3 ML NEB INH SCH ×4 (05:57→18:25)
[2022-10-18] MEDS: guaiFENesin 600 MG TABLET PO SCH ×2 (08:15→20:46)
[2022-10-18] MEDS: ENOXAPARIN 40 MG/0.4 ML SYRINGE SUBQ SCH (08:15)
[2022-10-18] MEDS: NICOTINE 21 MG PATCH TOP SCH (08:15)
[2022-10-18] MEDS: CHOLECALCIFEROL 25 MCG TABLET PO SCH (08:15)
[2022-10-18] MEDS: SODIUM CHLORIDE FLUSH 0.9% 10 ML SYRINGE IVP SCH ×2 (08:16→16:22)
[2022-10-18 09:34] LABS: BASOPHILS % (AUTO) 0.2 %; HCT - HEMATOCRIT 41.5 % (42.0-52.0); HGB - HEMOGLOBIN 12.6 g/dL (14.0-18.0); LYMPHOCYTES # (AUTO) 0.4 10^3/uL (1.5-3.5); LYMPHOCYTES % (AUTO) 7.1 %; MEAN CORPUSCULAR HEMOGLOBIN 28.4 pg (27.0-31.0); MEAN CORPUSCULAR HGB CONC 30.4 g/dL (32.0-36.0); MEAN CORPUSCULAR VOLUME 93.7 fL (80.0-94.0); MEAN PLATELET VOLUME 10.2 fL (7.4-11.4); MONOCYTES # (AUTO) 0.3 10^3/uL (0.0-1.0); MONOCYTES % (AUTO) 4.9 %; NEUTROPHILS # (AUTO) 5.2 10^3/uL (1.5-6.6); NEUTROPHILS % (AUTO) 87.3 %; PLT - PLATELET COUNT 211 10^3/uL (130-450); RED BLOOD COUNT 4.43 10^6/uL (4.70-6.10); RED CELL DISTRIBUTION WIDTH 12.5 % (12.0-15.0); WHITE BLOOD COUNT 5.9 x10^3/uL (4.8-10.8)
[2022-10-18 09:43] LABS: CREATININE 0.6 mg/dL (0.6-1.2); POTASSIUM 4.5 mmol/L (3.5-5.0)
--- NOTE | 2022-10-18 17:00 | PROVIDER PROGRESS NOTE ---
Subjective - Subjective Pt reports feeling: Improved (Was able to walk in hallway, pulling his oxygen tank beside him, no walker, RN was beside him holding a gait belt.) Objective - Vital Signs/Intake & Output Reviewed Vital Signs: Yes Vital Signs: Vital Signs Pulse Resp O2 Flow Rate 10/18/22 14:59 69 30 H 2 Intake & Output: Intake & Output 10/15/22 10/16/22 10/17/22 10/18/22 23:59 23:59 23:59 23:59 Intake Total 1590 2360 3560 2820 Output Total 350 0 Balance 1590 2009 3560 2820 - Objective General Appearance: positive: No acute distress, Alert, Other (Tanned and weathered skin, heavily wrinkled of face and arms.) Eyes Bilateral: positive: Normal inspection, No lid inflammation ENT: positive: ENT inspection nml, Other (wearing O2 via n.c.) Neck: positive: Nml inspection Respiratory: positive: No respiratory distress, Other (Poor air movement, no wheezes) Cardiovascular: positive: Regular rate & rhythm (Distant heart sounds due to air trapping from COPD), No murmur Abdomen: positive: Non-tender, No distention Skin: positive: Warm, Dry, Other (tanned, weathered skin) Extremities: positive: Non-tender, No pedal edema Neurologic/Psychiatric: positive: Motor nml, Other (Memory poor, cannot give details, answers with 2-3 word sentences, voice is soft.) - Lab Results Fish Bones: 10/18/22 09:29 10/18/22 09:29 Other Labs: Lab Results x24hrs 10/18/22 10/18/22 Range/Units 09:29 09:29 WBC 5.9 (4.8-10.8) x10^3/uL RBC 4.43 L (4.70-6.10) 10^6/uL Hgb 12.6 L (14.0-18.0) g/dL Hct 41.5 L (42.0-52.0) % MCV 93.7 (80.0-94.0) fL MCH 28.4 (27.0-31.0) pg MCHC 30.4 L (32.0-36.0) g/dL RDW 12.5 (12.0-15.0) % Plt Count 211 (130-450) 10^3/uL MPV 10.2 (7.4-11.4) fL Neut # (Auto) 5.2 (1.5-6.6) 10^3/uL Lymph # (Auto) 0.4 L (1.5-3.5) 10^3/uL [place] # (Auto) 0.3 (0.0-1.0) 10^3/uL Eos # (Auto) 0.0 (0.0-0.7) 10^3/uL Baso # (Auto) 0.0 (0.0-0.1) 10^3/uL Absolute Nucleated RBC 0.00 x10^3/uL Nucleated RBC % 0.0 /100WBC Sodium 133 L (135-145) mmol/L Potassium 4.5 (3.5-5.0) mmol/L Chloride 87 L (101-111) mmol/L Carbon Dioxide 36 H (21-32) mmol/L Anion Gap 10.0 (6-13) BUN 24 H (6-20) mg/dL Creatinine 0.6 (0.6-1.2) mg/dL Estimated GFR (MDRD) 131 (>89) Glucose 284 H (70-100) mg/dL Calcium 9.0 (8.5-10.3) mg/dL Assessment/Plan - Problem List (1) Acute respiratory failure with hypoxia and hypercapnia Impression: Likely from his COPD exacerbation and continued smoking Plan: Remain in ICU because he may need return to BiPAP for his hypercapnia, probably only at night Follow ABG prn and monitor saturations to adjust any BiPAP settings and also to wean down supplemental O2 via n.c. Continue supplemental oxygen, with target O2 sat 89-94% in a COPDer. Continue to treat his COPD exacerbation Will allow to ambulate Patient has chronic respiratory failure. BiPAP was considered and deemed ineffective. I am ordering a noninvasive home ventilator to reduce hospital readmissions. (2) COPD exacerbation Conclusion/Plan: Plan: We will continue with nebulized bronchodilators and nebulized inhaled steroids. Also continue IV steroids, but will wean those down rapidly, as he is improving quickly. Continue Montelukast and Mucinex. Continue supplemental oxygen, with target O2 sat 89-94% in a COPDer. (3) Schizophrenia Conclusion/Plan: Plan: We will continue his usual antipsychotic meds while here (4) TBI (traumatic brain injury) Conclusion/Plan: This has caused cognitive brain impairment. We got a message that the patient refused to wear his prescribed O2 at [facility], therefore it was picked up by [facility]. On 10/17, I asked him why he was not wearing O2 at [facility] and he said "I didn't want to". So I asked him "Why are you wearing the oxygen now?" and his answer was "Because I want to". Since his cognitive impairment appears to be significant, I doubt that we can reason or remind him and definitely cannot force him to wear oxygen Plan: We will request help from Social Work and sql programmer, to reach [facility] records department and determine if he has a DPOA who is making medical decisions for him, and will try to contact that person. At this point, the patient is a Full Code as well. We will have to come up with a plan for him to use oxygen, otherwise these repeat admissions with severe hypoxia will recur. (5) Tobacco abuse (Z72.0) Plan: Smoking cessation would be beneficial but he refuses to stop, as per message from [facility] to ED. Continue nicotine patch
[2022-10-18] MEDS: FINASTERIDE 5 MG TABLET PO SCH (20:46)
[2022-10-18] MEDS: OLANZapine ODT 5 MG TABLET TL SCH (20:46)
[2022-10-18] MEDS: MONTELUKAST 10 MG TABLET PO SCH (20:46)
[2022-10-18] MEDS: TAMSULOSIN 0.4 MG CAPSULE PO SCH (20:46)
[2022-10-19] MEDS: SODIUM CHLORIDE FLUSH 0.9% 10 ML SYRINGE IVP SCH ×4 (00:03→23:52)
[2022-10-19 05:34] LABS: BASOPHILS % (AUTO) 0.4 %; HCT - HEMATOCRIT 43.2 % (42.0-52.0); HGB - HEMOGLOBIN 13.5 g/dL (14.0-18.0); LYMPHOCYTES # (AUTO) 0.6 10^3/uL (1.5-3.5); LYMPHOCYTES % (AUTO) 8.2 %; MEAN CORPUSCULAR HEMOGLOBIN 28.8 pg (27.0-31.0); MEAN CORPUSCULAR HGB CONC 31.3 g/dL (32.0-36.0); MEAN CORPUSCULAR VOLUME 92.1 fL (80.0-94.0); MEAN PLATELET VOLUME 10.4 fL (7.4-11.4); MONOCYTES # (AUTO) 0.5 10^3/uL (0.0-1.0); MONOCYTES % (AUTO) 6.6 %; NEUTROPHILS # (AUTO) 6.4 10^3/uL (1.5-6.6); NEUTROPHILS % (AUTO) 82.1 %; PLT - PLATELET COUNT 240 10^3/uL (130-450); RED BLOOD COUNT 4.69 10^6/uL (4.70-6.10); RED CELL DISTRIBUTION WIDTH 12.7 % (12.0-15.0); WHITE BLOOD COUNT 7.8 x10^3/uL (4.8-10.8)
[2022-10-19 05:43] LABS: CALCIUM 8.9 mg/dL (8.5-10.3); CREATININE 0.6 mg/dL (0.6-1.2); POTASSIUM 4.6 mmol/L (3.5-5.0)
[2022-10-19] MEDS: methylPREDNISolone SUCCINATE 40 MG/ML VIAL IVP SCH ×3 (06:14→21:45)
[2022-10-19] MEDS: IPRATROPIUM/ALBUTEROL 3 ML NEB INH SCH ×4 (06:16→22:52)
[2022-10-19] MEDS: BUDESONIDE 0.5 MG/2 ML NEB INH SCH ×2 (06:16→22:52)
[2022-10-19] MEDS: CHOLECALCIFEROL 25 MCG TABLET PO SCH (08:21)
[2022-10-19] MEDS: guaiFENesin 600 MG TABLET PO SCH ×2 (08:21→21:44)
[2022-10-19] MEDS: ENOXAPARIN 40 MG/0.4 ML SYRINGE SUBQ SCH (08:21)
[2022-10-19] MEDS: NICOTINE 21 MG PATCH TOP SCH (08:21)
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
[2022-10-19] MEDS: TAMSULOSIN 0.4 MG CAPSULE PO SCH (21:44)
[2022-10-19] MEDS: FINASTERIDE 5 MG TABLET PO SCH (21:44)
[2022-10-19] MEDS: MONTELUKAST 10 MG TABLET PO SCH (21:44)
[2022-10-19] MEDS: OLANZapine ODT 5 MG TABLET TL SCH (21:44)
[2022-10-19] MEDS: SODIUM CHLORIDE FLUSH 0.9% 10 ML SYRINGE IVP PRN (21:45)
[2022-10-20] MEDS: methylPREDNISolone SUCCINATE 40 MG/ML VIAL IVP SCH (05:48)
[2022-10-20] MEDS: SODIUM CHLORIDE FLUSH 0.9% 10 ML SYRINGE IVP PRN (05:48)
[2022-10-20 05:51] LABS: HCT - HEMATOCRIT 48.7 % (42.0-52.0); HGB - HEMOGLOBIN 15.1 g/dL (14.0-18.0); LYMPHOCYTES % (AUTO) 6.8 %; MEAN CORPUSCULAR HEMOGLOBIN 28.5 pg (27.0-31.0); MEAN CORPUSCULAR VOLUME 92.1 fL (80.0-94.0); MEAN PLATELET VOLUME 10.4 fL (7.4-11.4); MONOCYTES % (AUTO) 8.2 %; PLT - PLATELET COUNT 261 10^3/uL (130-450); RED BLOOD COUNT 5.29 10^6/uL (4.70-6.10); RED CELL DISTRIBUTION WIDTH 12.9 % (12.0-15.0); WHITE BLOOD COUNT 13.3 x10^3/uL (4.8-10.8)
[2022-10-20 05:57] LABS: ABNORMAL LYMPHS % (MANUAL) 0 %
[2022-10-20 06:06] LABS: CALCIUM 9.4 mg/dL (8.5-10.3); CREATININE 0.7 mg/dL (0.6-1.2); POTASSIUM 4.7 mmol/L (3.5-5.0)
[2022-10-20 06:10] LABS: BAND NEUTROPHILS % (MANUAL) 2 %; DIFFERENTIAL COMMENT MANUAL DIFFERENTIAL; LYMPHOCYTES # (MANUAL) 1.2 10^3/uL (1.5-3.5); LYMPHOCYTES % (MANUAL) 9 %; METAMYELOCYTES % (MANUAL) 1 %; MONOCYTES # (MANUAL) 1.2 10^3/uL (0.0-1.0); MYELOCYTES % (MANUAL) 4 %; NEUTROPHILS # (MANUAL) 10.2 10^3/uL (1.5-6.6); PLATELET ESTIMATE, MANUAL NORMAL (130-450,000) (NORMAL); PLATELET MORPHOLOGY NORMAL APPEARANCE (NORMAL); RBC MORPHOLOGY (MULTIPLE) NORMAL APPEARANCE (NORMAL); WBC MORPHOLOGY (MULTIPLE) NORMAL APPEARANCE (NORMAL)
[2022-10-20] MEDS: IPRATROPIUM/ALBUTEROL 3 ML NEB INH SCH ×2 (07:08→11:39)
[2022-10-20] MEDS: BUDESONIDE 0.5 MG/2 ML NEB INH SCH (07:08)
[2022-10-20] MEDS: ENOXAPARIN 40 MG/0.4 ML SYRINGE SUBQ SCH (08:46)
[2022-10-20] MEDS: guaiFENesin 600 MG TABLET PO SCH (08:47)
[2022-10-20] MEDS: CHOLECALCIFEROL 25 MCG TABLET PO SCH (08:47)
[2022-10-20] MEDS: NICOTINE 21 MG PATCH TOP SCH (08:47)
[2022-10-20] MEDS: SODIUM CHLORIDE FLUSH 0.9% 10 ML SYRINGE IVP SCH (08:48)
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
[2022-10-20 12:01] LABS: ESTIMATED AVERAGE GLUCOSE 134 mg/dL (70-100); HEMOGLOBIN A1c% 6.3 % (4.27-6.07)
[2022-10-20 12:23] VITALS: BP 152/68
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
[2022-10-21] MEDS ORDERED: predniSONE 20 MG TABLET PO SCH (08:00)
== END 2022-10-20 13:15 | disposition home or self-care (01) | DRG 189 ==
LOC: EDUNIT# → ED 10:20 → ICU 14:09 → MS2 10-19 17:58
PROVIDERS: ADMIT Internal Medicine; ATTEND Specialist
DX: J96.01 Acute respiratory failure with hypoxia (principal); J44.1 Chronic obstructive pulmonary disease with (acute) exacerbation; E87.29 Other acidosis; J96.02 Acute respiratory failure with hypercapnia; J96.21 Acute and chronic respiratory failure with hypoxia; S06.89AS Other specified intracranial injury with loss of consciousness status unknown, sequela; F20.9 Schizophrenia, unspecified; Z20.822 Contact with and (suspected) exposure to COVID-19; F17.210 Nicotine dependence, cigarettes, uncomplicated; N40.0 Benign prostatic hyperplasia without lower urinary tract symptoms; I10 Essential (primary) hypertension; F17.200 Nicotine dependence, unspecified, uncomplicated; R41.89 Other symptoms and signs involving cognitive functions and awareness; S06.9XAS Unspecified intracranial injury with loss of consciousness status unknown, sequela; Z87.820 Personal history of traumatic brain injury; N40.1 Benign prostatic hyperplasia with lower urinary tract symptoms; N39.43 Post-void dribbling; R15.9 Full incontinence of feces
CPT/HCPCS: 36415; 36600; 71045; 80048; 80053; 82803; 83036; 83735; 83880; 85025; 87150; 87633; 93005; 94640; 94660; 94761; 96374; 99285; 99291; A9270; J1650; J7626

== ENCOUNTER 2022-12-08 09:47 | Outpatient (CLI) | payer MEDICARE, MEDICAID ==
[2022-12-08 10:03] LABS: BASOPHILS % (AUTO) 0.2 %; EOSINOPHILS # (AUTO) 0.1 10^3/uL (0.0-0.7); EOSINOPHILS % (AUTO) 1.7 %; HCT - HEMATOCRIT 51.3 % (42.0-52.0); HGB - HEMOGLOBIN 15.5 g/dL (14.0-18.0); LYMPHOCYTES # (AUTO) 0.8 10^3/uL (1.5-3.5); LYMPHOCYTES % (AUTO) 12.5 %; MEAN CORPUSCULAR HEMOGLOBIN 28.2 pg (27.0-31.0); MEAN CORPUSCULAR HGB CONC 30.2 g/dL (32.0-36.0); MEAN CORPUSCULAR VOLUME 93.4 fL (80.0-94.0); MEAN PLATELET VOLUME 10.5 fL (7.4-11.4); MONOCYTES # (AUTO) 0.7 10^3/uL (0.0-1.0); MONOCYTES % (AUTO) 11.3 %; NEUTROPHILS # (AUTO) 4.7 10^3/uL (1.5-6.6); NEUTROPHILS % (AUTO) 74.1 %; PLT - PLATELET COUNT 162 10^3/uL (130-450); RED BLOOD COUNT 5.49 10^6/uL (4.70-6.10); RED CELL DISTRIBUTION WIDTH 14.1 % (12.0-15.0); WHITE BLOOD COUNT 6.3 x10^3/uL (4.8-10.8)
[2022-12-08 10:07] LABS: BILIRUBIN,URINE NEGATIVE (NEGATIVE); GLUCOSE, URINE (UA) NEGATIVE (NEGATIVE); KETONES,URINE (UA) NEGATIVE (NEGATIVE); LEUKOCYTE ESTERASE, URINE NEGATIVE (NEGATIVE); NITRITE,URINE NEGATIVE (NEGATIVE); OCCULT BLOOD,URINE NEGATIVE (NEGATIVE); PH,URINE 5.5 PH (5.0-7.5); PROTEIN,URINE NEGATIVE (NEGATIVE); UROBILINOGEN,URINE 1 (NORMAL) E.U./dL (NORMAL)
[2022-12-08 10:08] LABS: CLARITY,URINE CLEAR (CLEAR)
[2022-12-08 10:16] LABS: ALBUMIN 3.8 g/dL (3.2-5.5); ALBUMIN/GLOBULIN RATIO 1.1 (1.0-2.2); CALCIUM 9.3 mg/dL (8.5-10.3); CREATININE 0.7 mg/dL (0.6-1.2); POTASSIUM 4.4 mmol/L (3.5-5.0); TOTAL PROTEIN 7.2 g/dL (6.7-8.2)
[2022-12-10 11:01] LABS: ESTIMATED AVERAGE GLUCOSE 131 mg/dL (70-100); HEMOGLOBIN A1c% 6.2 % (4.27-6.07)
== END 2022-12-08 09:48 | disposition home or self-care (01) ==
LOC: DI 09:47
PROVIDERS: ATTEND Internal Medicine
DX: R41.82 Altered mental status, unspecified (principal); J44.9 Chronic obstructive pulmonary disease, unspecified; R73.9 Hyperglycemia, unspecified; R09.02 Hypoxemia; F25.9 Schizoaffective disorder, unspecified
CPT/HCPCS: 36415; 80053; 81001; 81003; 83036; 84443; 85025; 87086

== ENCOUNTER 2023-06-06 22:58 | Outpatient (CLI) | payer MEDICARE, MEDICAID | END 2023-06-06 23:59 | disposition critical access hospital (66) | LOC: EMS 22:58 | DX: R06.00 Dyspnea, unspecified (principal); R06.89 Other abnormalities of breathing; R06.2 Wheezing; F17.210 Nicotine dependence, cigarettes, uncomplicated; J44.9 Chronic obstructive pulmonary disease, unspecified; Z99.81 Dependence on supplemental oxygen | CPT/HCPCS: A0425; A0427 ==

== ENCOUNTER 2023-06-06 23:17 | Emergency (ER) | payer MEDICARE, MEDICAID ==
[2023-06-06 23:59] LABS: ABG BASE EXCESS 2.4 mmol/L (-2.0-3.0); ABG HCO3 31.7 mmol/L (22.0-26.0); ABG OXYGEN SATURATION 90 % (94-98); ABG PH 7.27 (7.35-7.45); ABG PO2 61 mmHg (80-100); ABG TCO2 33.9 MMOL/L (21.0-29.0); ALLEN TEST POSITIVE
--- NOTE | 2023-06-07 00:03 | ED Physician Documentation ---
PD HPI DYSPNEA - Stated complaint Stated Complaint: SOA - Chief complaint Chief Complaint: Resp - History obtained from History obtained from: Patient, EMS - Additional information Additional information: Patient is a 78-year-old male with a history of COPD, TBI and schizophrenia presenting for evaluation of Shortness of air. Patient reports feeling short of breath for the last few days with cough. He supposed to be on 4 L nasal cannula. He lives at [facility]. He denies chest pain. He still is smoking. Patient is somewhat of a poor historian. EMS administered DuoNeb treatment and albuterol.No reported fevers. Review of Systems Constitutional: denies: Fever Cardiac: denies: Chest pain / pressure Respiratory: reports: Dyspnea, Cough GI: denies: Abdominal Pain PD PAST MEDICAL HISTORY - Past Medical History Cardiovascular: Hypertension Respiratory: COPD Neuro: Head injury, Other Endocrine/Autoimmune: None GI: None : Benign prostate hypertrophy HEENT: None Psych: Schizophrenia Musculoskeletal: None Derm: None - Present Medications Home Medications: Ambulatory Orders Medication Instructions Recorded Confirmed Finasteride [Proscar] 5 mg PO QPM 08/31/21 06/07/23 Fluticasone 110 Mcg [Flovent] 2 puffs INH BID 08/31/21 06/07/23 OLANZapine [Zyprexa] 7.5 mg PO QPM 08/31/21 06/07/23 Oxybutynin [Ditropan] 5 mg PO BID 08/31/21 06/07/23 Tamsulosin [Flomax] 0.8 mg PO QPM 08/31/21 06/07/23 Albuterol Sulf [Ventolin Hfa 2 puffs INH Q4HR PRN 10/15/22 06/07/23 Inhaler] Albuterol Sulf [Ventolin Hfa 2 puffs INH QID 10/15/22 06/07/23 Inhaler] Cholecalciferol [Vitamin D3] 50 mcg PO DAILY 10/15/22 06/07/23 Fluticasone/Salmeterol [Advair Hfa 1 puffs IH BID 10/15/22 06/07/23 115-21 Mcg Inhaler] Acetaminophen [Tylenol] 650 mg PO Q4HR PRN tab 10/20/22 06/07/23 - Allergies Allergies/Adverse Reactions: Allergies Allergy/AdvReac Type Severity Reaction Status Date / Time No Known Drug Allergies Allergy Verified 06/06/23 23:30 - Social History Does the pt smoke?: Yes Smoking Status: Current every day smoker Does the pt drink ETOH?: No Does the pt have substance abuse?: No - POLST Patient has POLST: No POLST Status: Full Code PD ED PE NORMAL - General General: Alert and oriented X 3, No acute distress, Well developed/nourished - HEENT HEENT: Atraumatic, Moist mucous membranes, Pharynx benign - Neck Neck: Supple, no meningeal sign - Cardiac Cardiac: Other (Tachycardic, regular rhythm) - Respiratory Respiratory: No respiratory distress, Other (Diffuse wheezing) - Abdomen Abdomen: Normal bowel sounds, Soft, Non tender, Non distended - Extremities Extremities: No calf tenderness / cord Results - Vitals Vitals: Vital Signs - 24 hr 06/06/23 06/07/23 06/07/23 23:24 00:00 00:19 Temperature 36.8 C Heart Rate 111 H 95 95 Respiratory 18 20 Rate Blood Pressure 132/70 H 151/71 H O2 Saturation 93 91 L If not protocol 4 : Oxygen Flow, liters/minute 06/07/23 06/07/23 06/07/23 00:30 01:00 01:30 Temperature Heart Rate 95 87 86 Respiratory 20 Rate Blood Pressure 213/66 H 139/67 H O2 Saturation 98 96 96 If not protocol : Oxygen Flow, liters/minute 06/07/23 06/07/23 06/07/23 02:00 02:13 02:30 Temperature Heart Rate 86 84 85 Respiratory 20 20 Rate Blood Pressure 124/69 130/69 O2 Saturation 96 95 If not protocol : Oxygen Flow, liters/minute 06/07/23 06/07/23 06/07/23 03:00 03:30 04:00 Temperature Heart Rate 83 84 83 Respiratory 20 21 20 Rate Blood Pressure 133/74 H 124/72 126/67 O2 Saturation 94 92 92 If not protocol : Oxygen Flow, liters/minute 06/07/23 06/07/23 06/07/23 04:30 05:00 05:30 Temperature Heart Rate 81 81 79 Respiratory 20 20 20 Rate Blood Pressure 123/67 128/72 118/71 O2 Saturation 91 L 92 93 If not protocol : Oxygen Flow, liters/minute 06/07/23 06/07/23 06/07/23 06:00 06:30 07:00 Temperature Heart Rate 78 78 78 Respiratory 20 20 20 Rate Blood Pressure 142/74 H 126/76 125/74 O2 Saturation 95 95 97 If not protocol : Oxygen Flow, liters/minute 06/07/23 06/07/23 07:27 08:12 Temperature Heart Rate 75 76 Respiratory 20 Rate Blood Pressure 123/67 O2 Saturation 96 If not protocol : Oxygen Flow, liters/minute Oxygen O2 Source BIPAP Oxygen Flow Rate 4 - EKG (time done) 5 EKG releavant findings:: EKG personally interpreted by author of this note. Relevant findings are: Rate 100, sinus tachycardia, no STEMI - Labs Labs: Laboratory Tests 06/06/23 06/07/23 06/07/23 23:55 00:01 00:03 WBC 8.1 RBC 5.07 Hgb 14.9 Hct 48.7 MCV 96.1 H MCH 29.4 MCHC 30.6 L RDW 13.0 Plt Count 134 MPV 10.1 Neut # (Auto) 5.9 Lymph # (Auto) 1.1 L [place] # (Auto) 1.0 Eos # (Auto) 0.0 Baso # (Auto) 0.0 Absolute Nucleated RBC 0.00 Nucleated RBC % 0.0 Bld Gas Analysis Time 2359 Sample Site RIGHT RADIAL ABG pH 7.27 L ABG pCO2 71 H* ABG pO2 61 L ABG HCO3 31.7 H ABG Total CO2 33.9 H ABG O2 Saturation 90 L ABG Base Excess 2.4 El Test POSITIVE O2 Delivery Device NASAL CANNULA O2 Liters/Min 4.00 FiO2 36.00 EPAP IPAP Sodium Potassium Chloride Carbon Dioxide Anion Gap BUN Creatinine Estimated GFR (MDRD) Glucose Calcium Total Bilirubin AST ALT Alkaline Phosphatase B-Natriuretic Peptide Total Protein Albumin Globulin Albumin/Globulin Ratio Nasal Adenovirus (PCR) NOT DETECTED Nasal B. parapertussis DNA (PCR) NOT DETECTED Nasal Coronavir 229E PCR NOT DETECTED Nasal Coronavir HKU1 PCR NOT DETECTED Nasal Coronavir NL63 PCR NOT DETECTED Nasal Coronavir OC43 PCR NOT DETECTED Nasal Enterovir/Rhinovir PCR DETECTED A Nasal Influenza B PCR NOT DETECTED Nasal Influenza A PCR NOT DETECTED Nasal Parainfluen 1 PCR NOT DETECTED Nasal Parainfluen 2 PCR NOT DETECTED Nasal Parainfluen 3 PCR NOT DETECTED Nasal Parainfluen 4 PCR NOT DETECTED Nasal RSV (PCR) NOT DETECTED Nasal B.pertussis DNA PCR NOT DETECTED Nasal C.pneumoniae (PCR) NOT DETECTED Osbaldo Human Metapneumo PCR NOT DETECTED Nasal M.pneumoniae (PCR) NOT DETECTED Nasal SARS-CoV-2 (PCR) NOT DETECTED 06/07/23 06/07/23 06/07/23 00:03 00:03 05:50 WBC RBC Hgb Hct MCV MCH MCHC RDW Plt Count MPV Neut # (Auto) Lymph # (Auto) [place] # (Auto) Eos # (Auto) Baso # (Auto) Absolute Nucleated RBC Nucleated RBC % Bld Gas Analysis Time 0559 Sample Site RIGHT RADIAL ABG pH 7.27 L ABG pCO2 80 H* ABG pO2 81 ABG HCO3 36.4 H ABG Total CO2 38.9 H ABG O2 Saturation 96 ABG Base Excess 6.2 H El Test POSITIVE O2 Delivery Device BiPAP O2 Liters/Min FiO2 40.00 EPAP 5 IPAP 15 Sodium 139 Potassium 4.1 Chloride 101 Carbon Dioxide 35 H Anion Gap 3.0 L BUN 26 H Creatinine 0.6 Estimated GFR (MDRD) 131 Glucose 152 H Calcium 9.0 Total Bilirubin 0.7 AST 29 ALT 44 Alkaline Phosphatase 72 B-Natriuretic Peptide 139 H Total Protein 6.9 Albumin 4.3 Globulin 2.6 Albumin/Globulin Ratio 1.7 Nasal Adenovirus (PCR) Nasal B. parapertussis DNA (PCR) Nasal Coronavir 229E PCR Nasal Coronavir HKU1 PCR Nasal Coronavir NL63 PCR Nasal Coronavir OC43 PCR Nasal Enterovir/Rhinovir PCR Nasal Influenza B PCR Nasal Influenza A PCR Nasal Parainfluen 1 PCR Nasal Parainfluen 2 PCR Nasal Parainfluen 3 PCR Nasal Parainfluen 4 PCR Nasal RSV (PCR) Nasal B.pertussis DNA PCR Nasal C.pneumoniae (PCR) Osbaldo Human Metapneumo PCR Nasal M.pneumoniae (PCR) Nasal SARS-CoV-2 (PCR) PD Medical Decision Making - ED course Complexity details: reviewed results, re-evaluated patient ED course: Patient is a 78-year-old male presenting for evaluation of a COPD exacerbation. Wheezing noted on exam. Patient is somewhat of a poor historian. Seems that he is supposed to be on home oxygen but unclear whether he is compliant with this or not. Neb treatments and steroids ordered. ABG demonstrates respiratory acidosis. Patient placed on BiPAP. CBC, chemistry, chest x-ray were reviewed.No signs of focal consolidation. Respiratory swab is positive for rhinovirus. Patient requires admission for further treatment but unfortunately there are no more ICU beds available and he is on BiPAP. Therefore he will remain boarding in the emergency department. We will consider admitting to [facility] if patient is able to be weaned from BiPAP. On repeat ABG this morning patient remains with respiratory acidosis, unchanged pH. He is awake and alert and is requesting coffee and to smoke a cigarette. He understands that BiPAP needs to be kept in place. Patient to be signed out to oncoming provider at shift change. Patient will require ICU admission once a bed is available. - Critical Care Time(min): 31 Time Includes: Direct patient care, Review records, Reassess patient, Document care Data interpretation: Labs, ABG, CXR Departure - Departure Disposition: 66 [facility] DC/Xfer Clinical Impression: COPD exacerbation, Respiratory acidosis Condition: Fair Forms: PCP List
[2023-06-07 00:04] LABS: ABG PCO2 71 mmHg (34-45)
[2023-06-07 00:10] LABS: BASOPHILS % (AUTO) 0.5 %; EOSINOPHILS % (AUTO) 0.2 %; HCT - HEMATOCRIT 48.7 % (42.0-52.0); HGB - HEMOGLOBIN 14.9 g/dL (14.0-18.0); LYMPHOCYTES # (AUTO) 1.1 10^3/uL (1.5-3.5); LYMPHOCYTES % (AUTO) 13.7 %; MEAN CORPUSCULAR HEMOGLOBIN 29.4 pg (27.0-31.0); MEAN CORPUSCULAR HGB CONC 30.6 g/dL (32.0-36.0); MEAN CORPUSCULAR VOLUME 96.1 fL (80.0-94.0); MEAN PLATELET VOLUME 10.1 fL (7.4-11.4); MONOCYTES % (AUTO) 12.4 %; NEUTROPHILS # (AUTO) 5.9 10^3/uL (1.5-6.6); NEUTROPHILS % (AUTO) 72.7 %; PLT - PLATELET COUNT 134 10^3/uL (130-450); RED BLOOD COUNT 5.07 10^6/uL (4.70-6.10); WHITE BLOOD COUNT 8.1 x10^3/uL (4.8-10.8)
[2023-06-07] MEDS: methylPREDNISolone SUCCINATE 125 MG/2 ML VIAL IVP STA (00:26)
[2023-06-07 00:28] LABS: ALBUMIN 4.3 g/dL (3.2-5.5); ALBUMIN/GLOBULIN RATIO 1.7 (1.0-2.2); BILIRUBIN,TOTAL 0.7 mg/dL (0.2-1.0); CREATININE 0.6 mg/dL (0.6-1.3); POTASSIUM 4.1 mmol/L (3.5-4.5); TOTAL PROTEIN 6.9 g/dL (6.4-8.9)
[2023-06-07 01:08] LABS: B. PARAPERTUSSIS- RESP PCR PAN NOT DETECTED; B. PERTUSSIS- RESP PCR PANEL NOT DETECTED; C. PNEUMONIAE- RESP PCR PANEL NOT DETECTED; CORONAVIRUS 229E-RESP PCR NOT DETECTED; CORONAVIRUS HKU1-RESP PCR NOT DETECTED; CORONAVIRUS NL63-RESP PCR NOT DETECTED; CORONAVIRUS OC43-RESP PCR NOT DETECTED; HUMAN METAPNEUMOVIRUS NOT DETECTED; INFLUENZA A- RESP PCR PANEL NOT DETECTED; INFLUENZA B - RESP PCR PANEL NOT DETECTED; M. PNEUMONIAE- RESP PCR PANEL NOT DETECTED; PARAINFLUENZA VIRUS 1 NOT DETECTED; PARAINFLUENZA VIRUS 2 NOT DETECTED; PARAINFLUENZA VIRUS 3 NOT DETECTED; PARAINFLUENZA VIRUS 4 NOT DETECTED; RHINOVIRUS/ENTEROVIRUS DETECTED; RSV- RESP PCR PANEL NOT DETECTED; SARS-CoV-2 -RESP PCR PANEL NOT DETECTED
--- NOTE | 2023-06-07 01:08 | XRAY Report ---
PROCEDURE: Chest 1 View X-Ray INDICATIONS: SOA TECHNIQUE: One view of the chest was acquired. COMPARISON: October 15, 2022 FINDINGS: Surgical changes and devices: None. Lungs and pleura: Mild bibasilar opacities, similar distribution compared to October 2022. No drain able pleural effusion. Mediastinum: Normal heart size. Bones and chest wall: No suspicious bony lesions. Overlying soft tissues appear unremarkable. IMPRESSION: Single view chest radiograph. Mild bibasilar opacities, similar distribution compared to October, representing infection and/or atelectasis. Consider future imaging surveillance to assess for reso lution. Reviewed by: Abhishek Shea MD on 06/07/2023 1:06 AM PDT Approved by: Abhishek Shea MD on 06/07/2023 1:06 AM PDT Station ID: [id number]
[2023-06-07] MEDS: IPRATROPIUM/ALBUTEROL 3 ML NEB INH STA (01:57)
[2023-06-07 06:02] LABS: ABG BASE EXCESS 6.2 mmol/L (-2.0-3.0); ABG HCO3 36.4 mmol/L (22.0-26.0); ABG OXYGEN SATURATION 96 % (94-98); ABG PH 7.27 (7.35-7.45); ABG PO2 81 mmHg (80-100); ABG TCO2 38.9 MMOL/L (21.0-29.0); ALLEN TEST POSITIVE
[2023-06-07 06:03] LABS: ABG PCO2 80 mmHg (34-45)
[2023-06-07 11:14] VITALS: BP 127/74; O2SAT 93
== END 2023-06-07 11:55 | disposition home or self-care (01) ==
LOC: EDUNIT# → ED 23:17
DX: J44.1 Chronic obstructive pulmonary disease with (acute) exacerbation (principal); F17.200 Nicotine dependence, unspecified, uncomplicated; I10 Essential (primary) hypertension; Z99.81 Dependence on supplemental oxygen; Z20.822 Contact with and (suspected) exposure to COVID-19; Z79.899 Other long term (current) drug therapy; Z79.51 Long term (current) use of inhaled steroids
CPT/HCPCS: 36415; 36600; 80053; 82803; 83880; 85025; 87633; 93005; 94660; 96374; 99291

== ENCOUNTER 2023-06-07 11:48 | Outpatient (CLI) | payer MEDICARE, MEDICAID | END 2023-06-07 11:49 | disposition home or self-care (01) | LOC: EMS 11:48 | PROVIDERS: ATTEND Emergency Medicine | DX: R41.0 Disorientation, unspecified (principal); J44.1 Chronic obstructive pulmonary disease with (acute) exacerbation; Z99.81 Dependence on supplemental oxygen; F03.90 Unspecified dementia, unspecified severity, without behavioral disturbance, psychotic disturbance, mood disturbance, and anxiety | CPT/HCPCS: A0425; A0428 ==

== ENCOUNTER 2023-06-12 06:27 | Outpatient (CLI) | payer MEDICARE, MEDICAID | END 2023-06-12 06:28 | disposition EMS.NT | LOC: EMS 06:27 | DX: R55 Syncope and collapse (principal); R06.89 Other abnormalities of breathing; R23.0 Cyanosis; Z99.81 Dependence on supplemental oxygen; Z66 Do not resuscitate ==